=== PATIENT | female | born 1945 | race Caucasian/White ===

== ENCOUNTER 2019-04-06 10:49 | Emergency (ER) | payer MEDICARE, OTHER ==
[~2019-04-06] VITALS: Ht 165 cm; Wt 54.4 kg
[2019-04-06] MEDS ORDERED: LORazepam INJ 2 MG/ML (ATIVAN) VIAL IVP PRN (11:00)
[2019-04-06] MEDS ORDERED: IBUPROFEN 800 MG (MOTRIN) TAB PO ONE (11:00)
[2019-04-06] MEDS ORDERED: NS IV 1000 ML 1,000 ML IV SCH (11:00)
--- NOTE | 2019-04-06 11:01 | ED General ---
General Stated Complaint: SOA,FEVER Source of Information: Patient Exam Limitations: No Limitations History of Present Illness Date Seen by Provider: Apr 06, 2019 Time Seen by Provider: 10:57 Initial Comments To ER per EMS from home with reports of shortness of breath coughing and diarrhea for one week. She does not communicate much, keeps her eyes closed, tachypneic, does not answer questions. Allegedly her son was found in her home this morning lived, while trying to convince her to come to the hospital EMS had to help load her son into a body bag. Timing/Duration: 1 Week Severity: Moderate Associated Systoms: Cough, Weakness Allergies and Home Medications Allergies Coded Allergies: Penicillins (Verified Allergy, Unknown, 04/06/19) codeine (Verified Allergy, Unknown, 04/06/19) Home Medications Alprazolam 0.25 Mg Tablet, 1-2 TAB PO BID PRN for ANXIETY Prescribed by: MER THORNTON on 04/06/19 1256 Azithromycin 250 Mg Tablet, 250 MG PO DAILY Prescribed by: MER THORNTON on 04/06/19 1256 Cefdinir 300 Mg Capsule, 300 MG PO BID Prescribed by: MER THORNTON on 04/06/19 1256 Patient Home Medication List Home Medication List Reviewed: Yes Review of Systems Review of Systems Constitutional: see HPI EENTM: see HPI Respiratory: see HPI Cardiovascular: no symptoms reported Gastrointestinal: diarrhea (review) Genitourinary: no symptoms reported Musculoskeletal: no symptoms reported Skin: no symptoms reported Psychiatric/Neurological: No Symptoms Reported Hematologic/Lymphatic: No Symptoms Reported Immunological/Allergic: no symptoms reported Past Bptwsfb-Bnybdv-Zjyvvx Hx Patient Social History Recent Foreign Travel: No Contact w/Someone Who Travel: No Physical Exam Vital Signs Vital Signs - First Documented 04/06/19 04/06/19 11:01 11:13 Temp 38.8 Pulse 124 Resp 24 B/P (MAP) 128/66 (86) Pulse Ox 95 Capillary Refill : Height, Weight, BMI Height: 0'65.00" Weight: 102lbs. oz. 46.149846zm; BMI Method: General Appearance: No Apparent Distress, WD/WN, Thin, Other (keeps eyes closed, when pressured she does answer questions with 1 or two word answers. Keeps eyes closed at all times. Lungs CTA with good air movement. ) Eyes: Bilateral Eye Normal Inspection, Bilateral Eye PERRL, Bilateral Eye EOMI HEENT: PERRL/EOMI Respiratory: Lungs Clear, Normal Breath Sounds, No Accessory Muscle Use, No Respiratory Distress, Other Cardiovascular: Normal Peripheral Pulses Gastrointestinal: Non Tender, Soft Extremity: Normal Capillary Refill, Normal Inspection Neurologic/Psychiatric: Alert, Oriented x3 Skin: Normal Color, Warm/Dry Focused Exam Lactate Level 04/06/19 10:55: Lactic Acid Level 2.46*H 04/06/19 13:30: Lactic Acid Level 1.73 Lactic Acid Level Progress/Results/Core Measures Suspected Sepsis SIRS Temperature: Pulse: Respiratory Rate: Laboratory Tests 04/06/19 10:55: White Blood Count 11.0 Blood Pressure / Mean: 04/06/19 10:55: Lactic Acid Level 2.46*H 04/06/19 13:30: Lactic Acid Level 1.73 Laboratory Tests 04/06/19 10:55: Creatinine 1.05, Platelet Count 175, Total Bilirubin 0.8 Results/Orders Lab Results Laboratory Tests Test 04/06/19 10:55 04/06/19 11:39 04/06/19 12:10 04/06/19 13:30 Range/Units White Blood Count 11.0 4.3-11.0 10^3/uL Red Blood Count 4.75 4.35-5.85 10^6/uL Hemoglobin 13.4 11.5-16.0 G/DL Hematocrit 40 35-52 % Mean Corpuscular Volume 83 80-99 FL Mean Corpuscular Hemoglobin 28 25-34 PG Mean Corpuscular Hemoglobin Concent 34 32-36 G/DL Red Cell Distribution Width 14.1 10.0-14.5 % Platelet Count 175 130-400 10^3/uL Mean Platelet Volume 10.0 7.4-10.4 FL Neutrophils (%) (Auto) 87 H 42-75 % Lymphocytes (%) (Auto) 8 L 12-44 % Monocytes (%) (Auto) 5 0-12 % Eosinophils (%) (Auto) 0 0-10 % Basophils (%) (Auto) 0 0-10 % Neutrophils # (Auto) 9.5 H 1.8-7.8 X 10^3 Lymphocytes # (Auto) 0.9 L 1.0-4.0 X 10^3 Monocytes # (Auto) 0.5 0.0-1.0 X 10^3 Eosinophils # (Auto) 0.0 0.0-0.3 10^3/uL Basophils # (Auto) 0.0 0.0-0.1 10^3/uL Neutrophils % (Manual) 76 % Lymphocytes % (Manual) 9 % Monocytes % (Manual) 4 % Band Neutrophils 11 % Poikilocytosis SLIGHT Sodium Level 132 L 135-145 MMOL/L Potassium Level 3.2 L 3.6-5.0 MMOL/L Chloride Level 96 L 98-107 MMOL/L Carbon Dioxide Level 20 L 21-32 MMOL/L Anion Gap 16 H 5-14 MMOL/L Blood Urea Nitrogen 15 7-18 MG/DL Creatinine 1.05 0.60-1.30 MG/DL Estimat Glomerular Filtration Rate 52 BUN/Creatinine Ratio 14 Glucose Level 123 H 70-105 MG/DL Lactic Acid Level 2.46 *H 1.73 0.50-2.00 MMOL/L Calcium Level 9.5 8.5-10.1 MG/DL Corrected Calcium 9.4 8.5-10.1 MG/DL Total Bilirubin 0.8 0.1-1.0 MG/DL Aspartate Amino Transf (AST/SGOT) 51 H 5-34 U/L Alanine Aminotransferase (ALT/SGPT) 30 0-55 U/L Alkaline Phosphatase 76 40-136 U/L Total Protein 7.5 6.4-8.2 GM/DL Albumin 4.1 3.2-4.5 GM/DL Blood Gas Puncture Site R RAD R BRACH Blood Gas Patient Temperature 38.8 38.8 Arterial Blood pH 7.30 *L 7.29 *L 7.37-7.43 Arterial Blood Partial Pressure CO2 40 42 35-45 MMHG Arterial Blood Partial Pressure O2 33 *L 33 *L 79-93 MMHG Arterial Blood HCO3 18 L 19 L 23-27 MMOL/L Arterial Blood Total CO2 19.6 L 20.3 L 21.0-31.0 MMOL/L Arterial Blood Oxygen Saturation 32 L 30 L 94-100 % Arterial Blood Base Excess -6.4 L -5.9 L -2.5-2.5 MMOL/L Jonathan Test YES-POS YES-POS Blood Gas Ventilator Setting NO NO Blood Gas Inspired Oxygen 1.5 1.5 Micro Results Microbiology 04/06/19 Influenza Types A,B Antigen (JOHNY) - Final, Complete 04/06/19 Blood Culture - Preliminary, Resulted No growth 04/06/19 Blood Culture - Preliminary, Resulted No growth My Orders Orders - MER THORNTON APRN Cbc With Automated Diff (04/06/19 10:54) Comprehensive Metabolic Panel (04/06/19 10:54) Ed Iv/Invasive Line Start (04/06/19 10:54) Lorazepam Injection (Ativan Injection) (04/06/19 11:00) Ns Iv 1000 Ml (Sodium Chloride 0.9%) (04/06/19 11:00) Influenza A And B Antigens (04/06/19 10:54) Chest Pa/Lat (2 View) (04/06/19 10:54) Blood Culture (04/06/19 10:56) Lactic Acid Analyzer (04/06/19 10:56) Ibuprofen Tablet (Motrin Tablet) (04/06/19 11:00) Manual Differential (04/06/19 10:55) Arterial Blood Gas (04/06/19 11:40) Potassium Chloride (Tablet) (K Dur Table (04/06/19 11:45) Arterial Blood Gas (04/06/19 12:09) Azithromycin Tablet (Zithromax Tablet) (04/06/19 12:15) Ceftriaxone For Iv Use (Rocephin For I (04/06/19 12:15) Medications Given in ED Vital Signs/I&O 04/07/19 00:00 Intake Total 1010 ml Balance 1010 ml Capillary Refill : Departure Communication (Admissions) She scores one point on curb 65 criteria and is appropriate for outpatient therapy. Impression Primary Impression: Pneumonia Qualified Codes: J18.9 - Pneumonia, unspecified organism Additional Impression: Anxiety Disposition: 01 HOME, SELF-CARE Condition: Stable Departure-Patient Inst. Decision time for Depature: 12:54 Referrals: PANKAJ FERNÁNDEZ MD (PCP) Primary Care Physician Patient Instructions: Pneumonia, Adult (DC) Add. Discharge Instructions: 1. Antibiotics as directed starting tomorrow 2. anxiety medication as needed starting this evening. Follow-up with Dr. Fernández this week for recheck within 48 hours. Return to ER for any worsening. Scripts Alprazolam (Alprazolam) 0.25 Mg Tablet 1-2 TAB PO BID PRN for ANXIETY for 7 Days, #10 TAB Prov: MER THORNTON APRN 04/06/19 Azithromycin (Azithromycin) 250 Mg Tablet 250 MG PO DAILY, #4 TAB 0 Refills Prov: MER THORNTON APRN 04/06/19 Cefdinir (Cefdinir) 300 Mg Capsule 300 MG PO BID, #14 CAP 0 Refills Prov: MER THORNTON APRN 04/06/19 Copy Copies To 1: PANKAJ FERNÁNDEZ MD, PETER J APRN Apr 06, 2019 11:01
[2019-04-06 11:11] LABS: BASOPHILS % (AUTO) 0 % (0-10); EOSINOPHILS % (AUTO) 0 % (0-10); HEMATOCRIT 40 % (35-52); HEMOGLOBIN 13.4 G/DL (11.5-16.0); LYMPHOCYTES # (AUTO) 0.9 X 10^3 (1.0-4.0); LYMPHOCYTES % (AUTO) 8 % (12-44); MEAN CORPUSCULAR HEMOGLOBIN 28 PG (25-34); MEAN CORPUSCULAR HGB CONC 34 G/DL (32-36); MEAN CORPUSCULAR VOLUME 83 FL (80-99); MONOCYTES # (AUTO) 0.5 X 10^3 (0.0-1.0); MONOCYTES % (AUTO) 5 % (0-12); NEUTROPHILS # (AUTO) 9.5 X 10^3 (1.8-7.8); NEUTROPHILS % (AUTO) 87 % (42-75); PLATELET COUNT 175 10^3/uL (130-400); RED CELL DISTRIBUTION WIDTH 14.1 % (10.0-14.5)
[2019-04-06 11:30] LABS: ALBUMIN 4.1 GM/DL (3.2-4.5); BILIRUBIN,TOTAL 0.8 MG/DL (0.1-1.0); CALCIUM 9.5 MG/DL (8.5-10.1); CREATININE SERUM 1.05 MG/DL (0.60-1.30); POTASSIUM 3.2 MMOL/L (3.6-5.0); TOTAL PROTEIN 7.5 GM/DL (6.4-8.2)
[2019-04-06 11:31] LABS: BAND NEUTROPHILS 11 %; LYMPHOCYTES % (MANUAL) 9 %; MONOCYTES % (MANUAL) 4 %; NEUTROPHILS % (MANUAL) 76 %
[2019-04-06 11:32] LABS: POIKILOCYTOSIS SLIGHT
[2019-04-06] MEDS ORDERED: KCL 20 MEQ TAB (K-DUR) PO ONE (11:45)
[2019-04-06 11:48] LABS: ABG BASE EXCESS -6.4 MMOL/L (-2.5-2.5); ABG OXYGEN SATURATION 32 % (94-100); ABG PCO2 40 MMHG (35-45); ABG TCO2 19.6 MMOL/L (21.0-31.0)
--- NOTE | 2019-04-06 12:01 | Diagnostic Imaging Report ---
INDICATION: Cough and dyspnea. FINDINGS: PA and lateral views of the chest are obtained. There is no previous study available at this time for comparison. Heart size and pulmonary vascularity are within normal limits. There is focal increased density in the right perihilar region as well as in the medial left lung base. There does appear to be air trapping in both lungs with an upper lobe predominance. No significant pleural fluid is seen. There is pectus excavatum. IMPRESSION: Right perihilar and left basilar airspace disease may represent areas of pneumonia. Follow-up study would be useful to document resolution and to exclude other underlying pathology. Dictated by: Dictated on workstation # [id number]
[2019-04-06 12:02] LABS: ABG PO2 33 MMHG (79-93); ALLENS TEST YES-POS; INSPIRED O2 1.5; PATIENT TEMP 38.8; VENTILATOR NO
[2019-04-06 12:15] LABS: ABG BASE EXCESS -5.9 MMOL/L (-2.5-2.5); ABG OXYGEN SATURATION 30 % (94-100); ABG PCO2 42 MMHG (35-45); ABG TCO2 20.3 MMOL/L (21.0-31.0)
[2019-04-06] MEDS ORDERED: AZITHROMYCIN 250 MG TAB (ZITHROMAX) PO SCH (12:15)
[2019-04-06] MEDS ORDERED: cefTRIAXone FOR IV USE 1,000 MG in WATER (STERILE) FOR INJECTION 10 ML IV ONE (12:15)
[2019-04-06 12:27] LABS: ABG PH 7.29 (7.37-7.43); ABG PO2 33 MMHG (79-93); ALLENS TEST YES-POS; INSPIRED O2 1.5; PATIENT TEMP 38.8; VENTILATOR NO
[2019-04-06] MEDS ORDERED: AZIT250T12 PO (12:56)
[2019-04-06] MEDS ORDERED: CEFD300C3 PO (12:56)
[2019-04-06] MEDS ORDERED: ALPR0.254 PO (12:56)
[2019-04-06 13:47] VITALS: BP 100/57
== END 2019-04-06 13:47 | disposition home or self-care (01) ==
LOC: EDUNIT# 10:49 → ER 10:50
DX: J18.9 Pneumonia, unspecified organism (principal); F41.9 Anxiety disorder, unspecified; Z88.0 Allergy status to penicillin; Z88.5 Allergy status to narcotic agent
CPT/HCPCS: 36415; 71046; 80053; 82805; 83605; 85007; 85027; 87040; 87804; 96361; 96374; 96375

== ENCOUNTER 2021-03-20 12:29 | Observation (INO) | payer MEDICARE, OTHER ==
[~2021-03-20] VITALS: Ht 165.1 cm; Wt 43.1 kg
[2021-03-20] MEDS: NS IV 1000 ML 1,000 ML IV SCH ×3 (10:00→18:20)
[~2021-03-20 12:29] MED LIST: ALPR.25T PO; AZIT250T12 PO; CEFD300C3 PO
[2021-03-20] MEDS ORDERED: LORazepam INJ 2 MG/ML (ATIVAN) VIAL IVP STA (12:44)
[2021-03-20] MEDS ORDERED: ONDANSETRON 4 MG/2 ML (SDV) Z0FRAN IVP ONE (12:45)
--- NOTE | 2021-03-20 12:50 | ED General ---
General Chief Complaint: Abdominal/GI Problems Stated Complaint: N/V Source of Information: Patient, EMS Exam Limitations: No Limitations History of Present Illness Date Seen by Provider: Mar 20, 2021 Time Seen by Provider: 12:37 Initial Comments Patient is a 75-year-old female who presents to the emergency room by EMS chief complaint of generalized weakness, nausea and vomiting. Patient has a history of persistent tremors and takes Xanax as needed. She is not very clear on how much or how often she takes Xanax. She cannot recall the last time she took it. She has had nausea and vomiting all morning, her daughter called the ambulance when she found her this morning. Patient states her symptoms started last night. She denies chest pain or shortness of breath. No URI symptoms. No pain. She does endorse dysuria. She states it happens off and on. No diarrhea. No recent falls, traumas or injuries. She had Covid in September. She also takes a thyroid medication, she cannot recall if she is taken that recently. All other review of systems reviewed and negative except as stated Timing/Duration: 1 Day Severity: Moderate Associated Systoms: Malaise, Nausea/Vomiting Allergies and Home Medications Allergies Coded Allergies: Penicillins (Verified Allergy, Unknown, 04/06/19) codeine (Verified Allergy, Unknown, 04/06/19) Patient Home Medication List Home Medication List Reviewed: Yes ALPRAZolam (Xanax Tablet) 0.25 Mg Tablet, 1-2 TAB PO BID PRN for ANXIETY Prescribed by: MER THORNTON on 04/06/19 1256 Azithromycin (Azithromycin) 250 Mg Tablet, 250 MG PO DAILY Prescribed by: MER THORNTON on 04/06/19 1256 Cefdinir (Cefdinir) 300 Mg Capsule, 300 MG PO BID Prescribed by: MER THORNTON on 04/06/19 1256 Review of Systems Review of Systems Constitutional: see HPI EENTM: no symptoms reported Respiratory: no symptoms reported Cardiovascular: no symptoms reported Gastrointestinal: nausea, vomiting Genitourinary: dysuria, frequency Musculoskeletal: no symptoms reported Skin: no symptoms reported Psychiatric/Neurological: Tremors (chronic) All Other Systems Reviewed Negative Unless Noted: Yes Past Uhbtmyi-Nolgyw-Ipoiny Hx Past Medical History Surgeries: Yes Appendectomy, Gallbladder Respiratory: No Cardiac: No Neurological: No Genitourinary: No Gastrointestinal: No Musculoskeletal: No Endocrine: No HEENT: No Cancer: No Psychosocial: No Anxiety, Depression Integumentary: No Blood Disorders: No Physical Exam Vital Signs Vital Signs - First Documented 03/20/21 12:29 Temp 36.9 Pulse 90 Resp 18 B/P (MAP) 97/62 (74) Pulse Ox 98 O2 Delivery Room Air Capillary Refill : Height, Weight, BMI Height: 0'65.00" Weight: 102lbs. oz. 46.242049gj; 19.00 BMI Method: General Appearance: Anxious, Mild Distress Eyes: Bilateral Eye Normal Inspection, Bilateral Eye PERRL, Bilateral Eye EOMI HEENT: Moist Mucous Membranes Neck: Normal Inspection Respiratory: Lungs Clear, Normal Breath Sounds, No Accessory Muscle Use, No Respiratory Distress Cardiovascular: Regular Rate, Rhythm Gastrointestinal: Normal Bowel Sounds, Non Tender, Soft Extremity: Normal Capillary Refill, Normal Inspection, Normal Range of Motion, Non Tender, No Calf Tenderness Neurologic/Psychiatric: Alert, No Motor/Sensory Deficits, Disoriented (confused as to year, month, name of her doctor), Other (anxious, tremoring) Skin: Normal Color, Warm/Dry Progress/Results/Core Measures Suspected Sepsis SIRS Temperature: Pulse: Respiratory Rate: Laboratory Tests 03/20/21 12:44: White Blood Count 8.4 Blood Pressure / Mean: Laboratory Tests 03/20/21 12:44: Creatinine 0.79, Platelet Count 259, Total Bilirubin 1.2H Results/Orders Lab Results Laboratory Tests Test 03/20/21 12:44 03/20/21 13:58 Range/Units White Blood Count 8.4 4.3-11.0 10^3/uL Red Blood Count 4.49 3.80-5.11 10^6/uL Hemoglobin 13.0 11.5-16.0 g/dL Hematocrit 37 35-52 % Mean Corpuscular Volume 83 80-99 fL Mean Corpuscular Hemoglobin 29 25-34 pg Mean Corpuscular Hemoglobin Concent 35 32-36 g/dL Red Cell Distribution Width 12.1 10.0-14.5 % Platelet Count 259 130-400 10^3/uL Mean Platelet Volume 9.9 9.0-12.2 fL Immature Granulocyte % (Auto) 0 % Neutrophils (%) (Auto) 73 42-75 % Lymphocytes (%) (Auto) 20 12-44 % Monocytes (%) (Auto) 7 0-12 % Eosinophils (%) (Auto) 0 0-10 % Basophils (%) (Auto) 0 0-10 % Neutrophils # (Auto) 6.1 1.8-7.8 10^3/uL Lymphocytes # (Auto) 1.7 1.0-4.0 10^3/uL Monocytes # (Auto) 0.6 0.0-1.0 10^3/uL Eosinophils # (Auto) 0.0 0.0-0.3 10^3/uL Basophils # (Auto) 0.0 0.0-0.1 10^3/uL Immature Granulocyte # (Auto) 0.0 0.0-0.1 10^3/uL Sodium Level 121 *L 135-145 MMOL/L Potassium Level 3.5 L 3.6-5.0 MMOL/L Chloride Level 87 L 98-107 MMOL/L Carbon Dioxide Level 20 L 21-32 MMOL/L Anion Gap 14 5-14 MMOL/L Blood Urea Nitrogen 5 L 7-18 MG/DL Creatinine 0.79 0.60-1.30 MG/DL Estimat Glomerular Filtration Rate 79 BUN/Creatinine Ratio 6 Glucose Level 104 70-105 MG/DL Calcium Level 9.0 8.5-10.1 MG/DL Corrected Calcium 8.9 8.5-10.1 MG/DL Total Bilirubin 1.2 H 0.1-1.0 MG/DL Aspartate Amino Transf (AST/SGOT) 38 H 5-34 U/L Alanine Aminotransferase (ALT/SGPT) 20 0-55 U/L Alkaline Phosphatase 76 40-136 U/L Total Protein 6.6 6.4-8.2 GM/DL Albumin 4.1 3.2-4.5 GM/DL Urine Color YELLOW Urine Clarity CLEAR Urine pH 7.5 5-9 Urine Specific [place] 1.010 L 1.016-1.022 Urine Protein NEGATIVE NEGATIVE Urine Glucose (UA) NEGATIVE NEGATIVE Urine Ketones NEGATIVE NEGATIVE Urine Nitrite POSITIVE H NEGATIVE Urine Bilirubin NEGATIVE NEGATIVE Urine Urobilinogen 0.2 < = 1.0 MG/DL Urine Leukocyte Esterase 1+ H NEGATIVE Urine RBC (Auto) 1+ H NEGATIVE Urine RBC RARE /HPF Urine WBC 2-5 /HPF Urine Crystals NONE /LPF Urine Bacteria MODERATE H /HPF Urine Casts NONE /LPF Urine Mucus NEGATIVE /LPF Urine Culture Indicated YES My Orders Orders - MARIBELL KUMAR MD Ed Iv/Invasive Line Start (03/20/21 12:44) Cbc With Automated Diff (03/20/21 12:44) Comprehensive Metabolic Panel (03/20/21 12:44) Urinalysis (03/20/21 12:44) Ns Iv 1000 Ml (Sodium Chloride 0.9%) (03/20/21 12:45) Lorazepam Injection (Ativan Injection) (03/20/21 12:44) Ondansetron Injection (Zofran Injectio (03/20/21 12:45) Urine Culture (03/20/21 13:58) Blood Culture (03/20/21 14:35) Lactic Acid Analyzer (03/20/21 14:35) Ceftriaxone 1 Gm Pre-Mix (Rocephin 1 Gm (03/20/21 14:45) Medications Given in ED Current Medications Medications Dose Ordered Sig/Milan Route Start Time Stop Time Status Last Admin Dose Admin Ondansetron HCl 4 mg ONCE ONCE IVP 03/20/21 12:45 03/20/21 12:46 DC 03/20/21 12:54 4 MG Vital Signs/I&O 03/20/21 03/20/21 12:29 13:16 Temp 36.9 Pulse 90 77 Resp 18 18 B/P (MAP) 97/62 (74) 153/89 Pulse Ox 98 94 O2 Delivery Room Air Room Air Capillary Refill : Progress Note #1: Time: 13:30 Progress Note Anticipate admission, serum sodium of 121. Progress Note #2: Time: 14:39 Progress Note Discussed with daughter Belgica, the patient normally lives independently and is able to converse and asked "normal". Belgica did state that her mother told her that she has had severe diarrhea over the last several days. That she just started vomiting today. She believes that her doctor lives in [place] and it may b e a "Dr. Rosales" daughter is not able to provide much more of the history. Daughter did mention that she was quite concerned as she has a mentally disabled brother who lives at home with the mother who is his primary care administrative tech. Departure Impression Primary Impression: Hyponatremia Additional Impressions: Nausea and vomiting Qualified Codes: R11.2 - Nausea with vomiting, unspecified UTI (urinary tract infection) Qualified Codes: N30.00 - Acute cystitis without hematuria Disposition: 09 ADMITTED INPATIENT Condition: Stable Admissions Decision to Admit Reason: Admit from ER (General) Decision to Admit/Date: Mar 20, 2021 Time/Decision to Admit Time: 14:40 Departure-Patient Inst. Referrals: PANKAJ FERNÁNDEZ MD (PCP/Family) Primary Care Physician MARIBELL KUMAR MD Mar 20, 2021 12:50
[2021-03-20 12:53] LABS: BASOPHILS % (AUTO) 0 % (0-10); EOSINOPHILS % (AUTO) 0 % (0-10); HEMATOCRIT 37 % (35-52); LYMPHOCYTES # (AUTO) 1.7 10^3/uL (1.0-4.0); LYMPHOCYTES % (AUTO) 20 % (12-44); MEAN CORPUSCULAR HEMOGLOBIN 29 pg (25-34); MEAN CORPUSCULAR HGB CONC 35 g/dL (32-36); MEAN CORPUSCULAR VOLUME 83 fL (80-99); MEAN PLATELET VOLUME 9.9 fL (9.0-12.2); MONOCYTES # (AUTO) 0.6 10^3/uL (0.0-1.0); MONOCYTES % (AUTO) 7 % (0-12); NEUTROPHILS # (AUTO) 6.1 10^3/uL (1.8-7.8); NEUTROPHILS % (AUTO) 73 % (42-75); PLATELET COUNT 259 10^3/uL (130-400); WHITE BLOOD COUNT 8.4 10^3/uL (4.3-11.0)
[2021-03-20 13:00] LABS: ALBUMIN 4.1 GM/DL (3.2-4.5)
[2021-03-20 13:01] LABS: POTASSIUM 3.5 MMOL/L (3.6-5.0)
[2021-03-20 13:03] LABS: TOTAL PROTEIN 6.6 GM/DL (6.4-8.2)
[2021-03-20 13:05] LABS: BILIRUBIN,TOTAL 1.2 MG/DL (0.1-1.0)
[2021-03-20 13:07] LABS: CREATININE SERUM 0.79 MG/DL (0.60-1.30)
[2021-03-20 14:04] LABS: BILIRUBIN,URINE NEGATIVE (NEGATIVE); CLARITY,URINE CLEAR; COLOR,URINE YELLOW; GLUCOSE, URINE (UA) NEGATIVE (NEGATIVE); KETONES,URINE NEGATIVE (NEGATIVE); LEUKOCYTE ESTERASE ,URINE 1+ (NEGATIVE); NITRITE,URINE POSITIVE (NEGATIVE); PH,URINE 7.5 (5-9); PROTEIN,URINE NEGATIVE (NEGATIVE)
[2021-03-20 14:11] LABS: BACTERIA,URINE MODERATE /HPF; RBC,URINE RARE /HPF
[2021-03-20] MEDS ORDERED: cefTRIAXone 1 GM PRE-MIX 50 ML IV ONE (14:45)
[2021-03-20] MEDS ORDERED: PANTOPRAZOLE 40 MG (PROTONIX) VIAL IV ONE (14:45)
[2021-03-20 15:30] LABS: FREE T4 (FREE THYROXINE) 1.23 NG/DL (0.70-1.48)
--- NOTE | 2021-03-20 15:54 | History & Physical-Hospitalist ---
NELLY GODFREY 03/20/21 1554: History of Present Illness HPI/Chief Complaint Angelika is a 75yo F who presented to the ER on 03/20/21 with generalized weakness, nausea, and vomiting. She says that she started having vomiting, nausea, and diarrhea yesterday that continued into today. Her daughter called an ambulance for the patient when the daughter came to the patient's home this morning. Patient has a history of persistent tremors and takes Xanax as needed. She states that she takes her Xanax once a day for anxiety. She also says she takes a thyroid medication, she cannot recall if she has taken that recently. Is allergic to penicillins and codeine. Past surgical history includes appendectomy and cholecystectomy. Denies any history of smoking, drinking, or use of illicit drugs. 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 She has been around her daughter recently who has COVID. Had a PCR test for COVID done and are waiting on results. Her Na was low at 121. Her UA was positive for nitrites and had 1+ RBC indicating a UTI. Patient does not meet SIRS criteria and there is not a concern for sepsis. A urine culture was taken. Patient was given a shot of Ceftriaxone in the ER. Patient was stable when she left ER and was admitted for UTI and hyponatremia. Date Seen 03/20/21 Attending Physician Camille rBown Ronald D MD Referring Physician Date of Admission Mar 20, 2021 at 15:10 Home Medications & Allergies Home Medications Reviewed patient Home Medication Reconciliation performed by pharmacy medication reconciliations security systems technician and/or nursing. Patients Allergies have been reviewed. Allergies Allergies Coded Allergies Penicillins (Verified Allergy, Unknown, 03/20/21) codeine (Verified Allergy, Unknown, 03/20/21) Past Rflmrac-Yimiuo-Rzeuma Hx Patient Social History Marrital Status: single Tobacco Use?: No Smoking Status: Never a Smoker Substance use?: No Alcohol Use?: No Pt feels they are or have been: No Immunizations Up To Date First/Initial COVID19 Vaccinat: UNSURE Second COVID19 Vaccination Herbie: UNSURE Current Status Advance Directives: No Primary Language: Arabic Preferred Spoken Language: Arabic Implanted or Applied Medical D: None Past Medical History Surgeries: Appendectomy, Gallbladder Anxiety, Depression Blood Disorders: No Review of Systems Constitutional: weakness EENTM: no symptoms reported Respiratory: cough (Patient says she has had a cough for about a week) Cardiovascular: no symptoms reported Gastrointestinal: abdominal pain (Suprapubic pain) Genitourinary: dysuria (Feels a burning sensation whenever urinating), frequency (Increased frequency), incontinence : No Musculoskeletal: no symptoms reported Skin: no symptoms reported Psychiatric/Neurological: Anxiety Physical Exam Physical Exam Vital Signs Vital Signs - First Documented 03/20/21 12:29 Temp 36.9 Pulse 90 Resp 18 B/P (MAP) 97/62 (74) Pulse Ox 98 O2 Delivery Room Air Capillary Refill : Less Than 3 Seconds Height, Weight, BMI Height: 0'65.00" Weight: 102lbs. oz. 46.949708rs; 15.00 BMI Method: General Appearance: Mild Distress (Patient appear weak and struggled to sit up in bed) Eyes: Bilateral Eye Normal Inspection HEENT: PERRL/EOMI Neck: Full Range of Motion Respiratory: Chest Non Tender, Lungs Clear, Normal Breath Sounds Cardiovascular: Regular Rate, Rhythm, No Edema, No Murmur Gastrointestinal: Normal Bowel Sounds, Tenderness (Suprapubic tenderness upon deep palpation) Back: Normal Inspection, No CVA Tenderness Extremity: Normal Capillary Refill Neurologic/Psychiatric: Alert, Disoriented (Oriented to person and place) Skin: Normal Color Lymphatic: No Adenopathy Results Results/Procedures Labs Laboratory Tests 03/20/21 12:44 03/21/21 06:51 Patient resulted labs reviewed. Assessment/Plan Assessment and Plan 1)Hyponatremia Patient started on IV sodium chloride Will try to raise Na levels 6-8 units over the next 24 hours Will continue to monitor labs Should check serum osm and urine Na 2)Nausea and vomiting Ondansetron started to decrease symptoms 3)UTI Patient will be started on oral Cefdinir to treat UTI Will look at results of urine culture Diagnosis/Problems Diagnosis/Problems (1) Hyponatremia Status: Acute (2) Nausea and vomiting Status: Acute Qualifiers: Vomiting type: unspecified Qualified Codes: R11.2 - Nausea with vomiting, unspecified (3) UTI (urinary tract infection) Status: Acute Qualifiers: Urinary tract infection type: acute cystitis Hematuria presence: without hematuria Qualified Codes: N30.00 - Acute cystitis without hematuria CAMILLE BROWN DO 03/21/21 0526: History of Present Illness HPI/Chief Complaint CC: Weakness HPI: 75 [facility] old [facility] pt of Renetta Rosales. Presented to the ER with severe weakn ess and found to have severely low sodium levels. Pt has chronic diarrhea and taking Lomotil for the past 6 weeks. 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 Source: patient Exam Limitations: no limitations Time Seen by a Provider: 10:00 Past Pwxofxr-Kuhiyw-Yjznsx Hx Patient Social History Marrital Status: single Employed/Student: retired Smoking Status: Never a Smoker Past Medical History Hypothyroidsim Review of Systems Constitutional: see HPI, weakness EENTM: no symptoms reported Respiratory: no symptoms reported Cardiovascular: no symptoms reported Gastrointestinal: diarrhea Genitourinary: dysuria (Feels a burning sensation whenever urinating), frequency (Increased frequency) Musculoskeletal: no symptoms reported Skin: no symptoms reported Psychiatric/Neurological: Anxiety All Other Systems Reviewed Negative Unless Noted: Yes Physical Exam Physical Exam General Appearance: No Apparent Distress, Anxious, Chronically ill, Thin Eyes: Right Eye Normal Inspection, Right Eye PERRL HEENT: PERRL/EOMI, Normal ENT Inspection, Pharynx Normal, Moist Mucous Membranes Neck: Full Range of Motion, Normal Inspection, Non Tender Respiratory: Chest Non Tender, Lungs Clear, Normal Breath Sounds, No Accessory Muscle Use, No Respiratory Distress Cardiovascular: Regular Rate, Rhythm, No Edema, No Gallop, No JVD, No Murmur, Normal Peripheral Pulses Gastrointestinal: Normal Bowel Sounds, No Organomegaly, No Pulsatile Mass, Non Tender, Soft Back: Normal Inspection, No CVA Tenderness, No Vertebral Tenderness Extremity: Normal Capillary Refill, Normal Inspection, Normal Range of Motion, Non Tender, No Calf Tenderness, No Pedal Edema Neurologic/Psychiatric: Alert, Oriented x3, No Motor/Sensory Deficits, Normal Mood/Affect Skin: Normal Color, Warm/Dry Lymphatic: No Adenopathy Assessment/Plan Admission Diagnosis Assessment: Weakness Hyponatremia Acute on chronic diarrhea UTI Hypothyroidism Plan: IV fluids Antibiotic Admission Status: Observation Supervisory-Addendum Brief Verification & Attestation Participated in pt care: history, MDM, physical Personally performed: exam, history, MDM, supervision of care Care discussed with: Medical Student Procedures: n/a Results interpretation: Verified all documentation Verification and Attestation of Medical Student E/M Service A medical student performed and documented this service in my presence. I reviewed and verified all information documented by the medical student and made modifications to such information, when appropriate. I personally performed the physical exam and medical decision making. Camille Brown, Mar 22, 2021,05:06 NELLY GODFREY Mar 20, 2021 15:54 CAMILLE BROWN DO Mar 21, 2021 05:26
[2021-03-20] MEDS ORDERED: MELATONIN 3 MG TABLET PO PRN (17:00)
[2021-03-20] MEDS ORDERED: ENOXAPARIN 40 MG/0.4 ML (LOVENOX) SYR SC SCH (17:00)
[2021-03-20] MEDS ORDERED: ALPRAZolam 0.25 MG (XANAX) TAB PO PRN (17:00)
[2021-03-20] MEDS ORDERED: diphenhydrAMINE 25 MG TAB (BENADRYL) PO PRN (17:00)
[2021-03-20] MEDS ORDERED: polyethylene glycoL POWDER 17 GM (MIRALAX) PACK PO PRN (17:00)
[2021-03-20] MEDS ORDERED: ANTACID SUSP 30 ML UDC (MYLANTA) PO PRN (17:00)
[2021-03-20] MEDS ORDERED: BISACODYL 10 MG SUPP (DULCOLAX) PR PRN (17:00)
[2021-03-20] MEDS ORDERED: ACETAMINOPHEN 325 MG TABLET PO PRN (17:00)
[2021-03-20] MEDS ORDERED: diphenhydrAMINE 50 MG/ML INJ (BENADRYL) IVP PRN (17:00)
[2021-03-20] MEDS ORDERED: ONDANSETRON 4 MG (ZOFRAN) ORAL DISSOLVE TAB PO PRN (17:00)
[2021-03-20] MEDS ORDERED: LACTULOSE SYRUP 10GM/15ML (ENULOSE) 30ML UDC PO PRN (17:00)
[2021-03-20] MEDS ORDERED: ONDANSETRON 4 MG/2 ML (SDV) Z0FRAN IV PRN (17:00)
[2021-03-20] MEDS ORDERED: CALCIUM CARBONATE 500 MG (TUMS) TAB.CHEW PO PRN (17:00)
[2021-03-20] MEDS ORDERED: MILK OF MAGNESIA 400 MG/5 ML 30 ML UDC PO PRN (17:00)
[2021-03-20] MEDS ORDERED: ENOXAPARIN 30 MG/0.3 ML (LOVENOX) SYR SC SCH (18:00)
[2021-03-20 18:08] VITALS: BP 111/67
[2021-03-20 19:08] VITALS: BP 111/67
[2021-03-20] MEDS ORDERED: RT-ALBUTEROL/IPRATROPIUM 3 ML (DUONEB) VIAL INH PRN (19:30)
[2021-03-20 20:56] VITALS: BP 111/67
[2021-03-20] MEDS: DOCUSATE SODIUM 100 MG (COLACE) CAP PO SCH (22:13)
[2021-03-20] MEDS: SENNOSIDES 8.6 MG (SENOKOT) TAB PO SCH (22:13)
[2021-03-20] MEDS: SODIUM CHLORIDE 1 GM TABLET PO SCH (22:28)
[2021-03-21 01:01] VITALS: BP 119/62
[2021-03-21 04:28] VITALS: BP 111/56
[2021-03-21] MEDS: NS IV 1000 ML 1,000 ML IV SCH (04:28)
[2021-03-21 07:07] LABS: BASOPHILS % (AUTO) 0 % (0-10); EOSINOPHILS # (AUTO) 0.1 10^3/uL (0.0-0.3); EOSINOPHILS % (AUTO) 1 % (0-10); HEMATOCRIT 35 % (35-52); HEMOGLOBIN 11.5 g/dL (11.5-16.0); LYMPHOCYTES # (AUTO) 1.2 10^3/uL (1.0-4.0); LYMPHOCYTES % (AUTO) 32 % (12-44); MEAN CORPUSCULAR HEMOGLOBIN 29 pg (25-34); MEAN CORPUSCULAR HGB CONC 33 g/dL (32-36); MEAN CORPUSCULAR VOLUME 87 fL (80-99); MEAN PLATELET VOLUME 10.3 fL (9.0-12.2); MONOCYTES # (AUTO) 0.5 10^3/uL (0.0-1.0); MONOCYTES % (AUTO) 12 % (0-12); NEUTROPHILS # (AUTO) 2.1 10^3/uL (1.8-7.8); NEUTROPHILS % (AUTO) 54 % (42-75); PLATELET COUNT 167 10^3/uL (130-400); WHITE BLOOD COUNT 3.9 10^3/uL (4.3-11.0)
[2021-03-21 07:25] LABS: ALBUMIN 3.3 GM/DL (3.2-4.5); BILIRUBIN,TOTAL 0.6 MG/DL (0.1-1.0); CALCIUM 8.3 MG/DL (8.5-10.1); CREATININE SERUM 0.75 MG/DL (0.60-1.30); POTASSIUM 3.5 MMOL/L (3.6-5.0); TOTAL PROTEIN 5.6 GM/DL (6.4-8.2)
[2021-03-21 08:18] VITALS: BP 116/64
[2021-03-21] MEDS ORDERED: cefTRIAXone 1 GM PRE-MIX 50 ML IV SCH (09:00)
[2021-03-21] MEDS: DOCUSATE SODIUM 100 MG (COLACE) CAP PO SCH (09:45)
[2021-03-21] MEDS: SENNOSIDES 8.6 MG (SENOKOT) TAB PO SCH (09:45)
[2021-03-21] MEDS ORDERED: KCL 20 MEQ TAB (K-DUR) PO NR (10:00)
[2021-03-21] MEDS: SODIUM CHLORIDE 1 GM TABLET PO SCH (10:24)
[2021-03-21] MEDS ORDERED: SERT-413 PO (10:46)
[2021-03-21] MEDS ORDERED: ACET-2267 PO (10:46)
[2021-03-21] MEDS ORDERED: DIPH1TAB PO (10:46)
[2021-03-21] MEDS ORDERED: ALPR0.254 PO (10:46)
[2021-03-21] MEDS ORDERED: LEVO25TA5 PO (10:50)
[2021-03-21] MEDS ORDERED: CEFD300C3 PO (10:55)
[2021-03-21] MEDS ORDERED: NF-NACL1GT PO (10:55)
--- NOTE | 2021-03-21 10:56 | Discharge Summary ---
Discharge Summary Hospital Course Was the Problem List Reviewed?: Yes Problems/Dx: (1) Hyponatremia Status: Acute (2) Nausea and vomiting Status: Acute Qualifiers: Qualified Codes: R11.2 - Nausea with vomiting, unspecified (3) UTI (urinary tract infection) Status: Acute Qualifiers: Qualified Codes: N30.00 - Acute cystitis without hematuria Hospital Course Date of Admission: Mar 20, 2021 at 15:10 Admission Diagnosis : Family Physician/Provider: Maya Rosales Date of Discharge: 03/21/21 Discharge Diagnosis: Hyponatremia, UTI, acute on chronic diarrhea Hospital Course: Pt had an uneventful hospital course. She was admitted and placed on gentle IV fluids, sodium tablets, and fluid restriction. Her sodium level returned back to normal at 140. PT and OT were consulted. Pt will be discharged in improved condition. Labs and Pending Lab Test: Laboratory Tests 03/20/21 12:44: White Blood Count 8.4, Red Blood Count 4.49, Hemoglobin 13.0, Hematocrit 37, Mean Corpuscular Volume 83, Mean Corpuscular Hemoglobin 29, Mean Corpuscular Hemoglobin Concent 35, Red Cell Distribution Width 12.1, Platelet Count 259, Mean Platelet Volume 9.9, Immature Granulocyte % (Auto) 0, Neutrophils (%) (Auto ) 73, Lymphocytes (%) (Auto) 20, Monocytes (%) (Auto) 7, Eosinophils (%) (Auto) 0, Basophils (%) (Auto) 0, Neutrophils # (Auto) 6.1, Lymphocytes # (Auto) 1.7, Monocytes # (Auto) 0.6, Eosinophils # (Auto) 0.0, Basophils # (Auto) 0.0, Immature Granulocyte # (Auto) 0.0, Sodium Level 121*L, Potassium Level 3.5L, Chloride Level 87L, Carbon Dioxide Level 20L, Anion Gap 14, Blood Urea Nitrogen 5L, Creatinine 0.79, Estimat Glomerular Filtration Rate 79, BUN/Creatinine Ratio 6, Glucose Level 104, Calcium Level 9.0, Corrected Calcium 8.9, Total Bilirubin 1.2H, Aspartate Amino Transf (AST/SGOT) 38H, Alanine Aminotransferase (ALT/SGPT) 20, Alkaline Phosphatase 76, Total Protein 6.6, Albumin 4.1, Thyroid Stimulating Hormone (TSH) 6.72H, Free Thyroxine 1.23 03/20/21 13:58: Urine Color YELLOW, Urine Clarity CLEAR, Urine pH 7.5, Urine Specific [place] 1.010L, Urine Protein NEGATIVE, Urine Glucose (UA) NEGATIVE, Urine Ketones NEGATIVE, Urine Nitrite POSITIVEH, Urine Bilirubin NEGATIVE, Urine Urobilinogen 0.2, Urine Leukocyte Esterase 1+H, Urine RBC (Auto) 1+H, Urine RBC RARE, Urine WBC 2-5, Urine Crystals NONE, Urine Bacteria MODERATEH, Urine Casts NONE, Urine Mucus NEGATIVE, Urine Culture Indicated YES 03/20/21 14:21: Influenza Type A (RT-PCR) Not Detected, Influenza Type B (RT-PCR) Not Detected, SARS-CoV-2 RNA (RT-PCR) Not Detected 03/20/21 14:48: Lactic Acid Level 0.79 03/21/21 06:51: White Blood Count 3.9L, Red Blood Count 3.96, Hemoglobin 11.5, Hematocrit 35, Mean Corpuscular Volume 87, Mean Corpuscular Hemoglobin 29, Mean Corpuscular Hemoglobin Concent 33, Red Cell Distribution Width 12.8, Platelet Count 167, Mean Platelet Volume 10.3, Immature Granulocyte % (Auto) 0, Neutrophils (%) (Auto) 54, Lymphocytes (%) (Auto) 32, Monocytes (%) (Auto) 12, Eosinophils (%) (Auto) 1, Basophils (%) (Auto) 0, Neutrophils # (Auto) 2.1, Lymphocytes # (Auto) 1.2, Monocytes # (Auto) 0.5, Eosinophils # (Auto) 0.1, Basophils # (Auto) 0.0, Immature Granulocyte # (Auto) 0.0, Sodium Level 140, Potassium Level 3.5L, Chloride Level 111#H, Carbon Dioxide Level 20L, Anion Gap 9, Blood Urea Nitrogen 6L, Creatinine 0.75, Estimat Glomerular Filtration Rate 84, BUN/Creatinine Ratio 8, Glucose Level 81, Calcium Level 8.3L, Corrected Calcium 8.9, Total Bilirubin 0.6, Aspartate Amino Transf (AST/SGOT) 38H, Alanine Aminotransferase (ALT/SGPT) 24, Alkaline Phosphatase 57, Total Protein 5.6L, Albumin 3.3 Microbiology 03/20/21 Urine Culture - Preliminary, Resulted Gram Negative [place] Home Meds Active Reported Levothyroxine Sodium 25 Mcg Tablet 25 Mcg PO DAILY Tylenol Extra Strength (Acetaminophen) 500 Mg Tablet 1,000 Mg PO Q8H PRN ALPRAZolam 0.25 Mg Tablet 0.25 Mg PO DAILY PRN Lomotil 2.5-0.025 mg Tablet (Diphenoxylate HCl/Atropine) 1 Each Tablet 1 Ea PO DAILY PRN Sertraline HCl 50 Mg Tablet 50 Mg PO HS Assessment/Pt Instructions PCP in 1 week Discharge Planning: <30 minutes discharge planning Discharge Instructions Discharge Diet: No Restrictions Discharge Physical Examination Vital Signs Vital Signs Date Time Temp Pulse Resp B/P (MAP) Pulse Ox O2 Delivery O2 Flow Rate FiO2 03/21/21 09:13 Room Air 03/21/21 08:18 36.8 63 18 116/64 (81) 97 General Appearance: No Apparent Distress, WD/WN, Chronically ill, Thin Allergies: Coded Allergies: Penicillins (Verified Allergy, Unknown, 03/20/21) codeine (Verified Allergy, Unknown, 03/20/21) Discharge Summary Date of Admission Mar 20, 2021 at 15:10 Date of Discharge Discharge Date: Mar 21, 2021 Discharge Diagnosis (1) Hyponatremia Status: Acute (2) Nausea and vomiting Status: Acute Qualifiers: Qualified Codes: R11.2 - Nausea with vomiting, unspecified (3) UTI (urinary tract infection) Status: Acute Qualifiers: Qualified Codes: N30.00 - Acute cystitis without hematuria JT OLIVA DO Mar 21, 2021 10:56
[2021-03-21] MEDS ORDERED: ALPRAZolam 0.25 MG (XANAX) TAB PO PRN (11:00)
[2021-03-21] MEDS ORDERED: ACETAMINOPHEN 500 MG TAB (TYLENOL) PO PRN (11:00)
--- NOTE | 2021-03-21 11:27 | Occupational Therapy Eval ---
OT Evaluation-General/PLF Medical Diagnosis Admission Date Mar 20, 2021 at 15:10 Medical Diagnosis: UTI, hyponatremia Onset Date: Mar 20, 2021 Therapy Diagnosis Therapy Diagnosis: decreased ADL status Height/Weight Height (Feet): 0 Height (Inches): 65.00 Weight (Pounds): 102 Precautions Precautions/Isolations: Contact Isolation, Droplet Isolation, Fall Prevention Referral Physician: Stephanie Referral Reason: Evaluation/Treatment Medical History Additional Medical History Appendectomy, Gallbladder Anxiety, Depression Current History ED 03/20/21 with generalized weakness, nausea and vomiting. Social History Home: Single Level Current Living Status: Children (son) Entry Into Home: Stairs With Railing Steps Into Home: 4 ADL-Prior Level of Function SCALE: Activities may be completed with or without assistive devices. 7-Cjdfcxnowh-ixxnitd completes the activity by him/herself with no assistance from a helper. 5-Set-up or Clean-up Assistance-helper sets up or cleans up; patient completes activity. [place] assists only prior to or following the activity. 4-Supervision or Touching Assistance-helper provides verbal cues and/or touching/steadying and/or contact guard assistance as patient completes activity. Assistance may be provided throughout the activity or intermittently. 3-Partial/Moderate Assistance-helper does LESS THAN HALF the effort. [place] lifts, holds or supports trunk or limbs, but provides less than half the effort. 2-Substantial/Maximal Assistance-helper does MORE THAN HALF the effort. [place] lifts or holds trunk or limbs and provides more than half the effort. 6-Vexzdpmiq-xjrzex does ALL the effort. Patient does none of the effort to complete the activity. Or, the assistance of 2 or more helpers is required for the patient to complete the activity. If activity was not attempted, code reason: 7-Patient Refused. 9-Not Applicable-not attempted and the patient did not perform the activity before the current illness, exacerbation or injury. 10-Not Attempted due to Environmental Limitations-(lack of equipment, weather restraints, etc.). 88-Not Attempted due to Medical Conditions or Safety Concerns. ADL PLOF Comments Pt reports IND with ADLs and functional mobility. She typically uses a walker but let someone borrow it and they never returned it. Pt has a tub/shower with a SC. Self Care: Independent Functional Cognition: Independent DME/Equipment: Tub/Shower OT Current Status Subjective Pt in bed, eating breakfast, agreeable to OT evaluation. Pt reports 2/10 pain, headache. Mental Status/Objective Patient Orientation: Person, Place, Situation Attachments: IV Current Glasses/Contacts: Yes Hand Dominance: Right Upper Extremity ROM WFL, BUE shoulder flexion to approx 150 degrees Upper Extremity Strength grossly 4/5 BUEs ADL-Treatment Eating (QC): 6 (IND with breakfast) Oral Hygiene (QC): 5 (per clincial judgment.) Other Treatments Pt in bed, transferred supine to sit EOB, then used FWW to perform functional mobility in hallways, CGA with steadying assistance (300'). Pt returned to her room, transferring to recliner. Post tx, pt in recliner, call light in reach and all needs met, continued eating breakfast. Education OT Patient Education: Correct positioning, Modified ADL techniques, Progress toward Goal/Update tx plan, Purpose of tx/functional activities Teaching Recipient: Patient Teaching Methods: Discussion Response to Teaching: Verbalize Understanding OT Usp Goals Customer Acquisition Specialist Goals Time Frame: Mar 29, 2021 Eating (QC): 6 Oral Hygiene (QC): 6 Toileting Hygiene (QC): 6 Shower/Bathe Self (QC): 6 Upper Body Dressing (QC): 6 Lower Body Dressing (QC): 6 On/Off Footwear (QC): 6 Additional Goals: 1-Demonstrate ADL Tasks, 2-Verbalize Understanding, 3- ImproveStrength/[place] 1=Demonstrate adherence to instructed precautions during ADL tasks. 2=Patient will verbalize/demonstrate understanding of assistive devices/modifications for ADL. 3=Patient will improve strength/tolerance for activity to enable patient to perform ADL's. OT Education/Plan Problem List/Assessment Assessment: Decreased Activ Tolerance, Decreased UE Strength, Impaired Funct Balance, Impaired I ADL's, Impaired Self-Care Skills Discharge Recommendations Plan/Recommendations: Continue POC Treatment Plan/Plan of Care Patient would benefit from OT for education, treatment and training to promote independence in ADL's, mobility, safety and/or upper extremity function for ADL's. Plan of Care: ADL Retraining, Functional Mobility, UE Funct Exercise/Act Treatment Duration: Mar 29, 2021 Frequency: 3 times per week (3-5 times per week) Estimated Hrs Per Day: .25 hour per day Rehab Potential: Fair Time/GCodes Start Time: 11:05 Stop Time: 11:20 Total Time Billed (hr/min): 15 Billed Treatment Time 1, DAGO ANDERSEN OT Mar 21, 2021 11:27
[2021-03-21 11:28] VITALS: BP 120/62
--- NOTE | 2021-03-21 11:29 | Physical Therapy Evaluation ---
PT Evaluation-General Medical Diagnosis Admission Date Mar 20, 2021 at 15:10 Medical Diagnosis: UTI, hyponatremia Onset Date: Mar 20, 2021 Therapy Diagnosis Therapy Diagnosis: impaired mobility, balance Height/Weight Height (Feet): 0 Height (Inches): 65.00 Weight (Pounds): 102 Precautions Precautions/Isolations: Contact Isolation, Droplet Isolation, Fall Prevention Referral Physician: Camille Brown DO Reason for Referral: Evaluation/Treatment Medical History Additional Medical History Past Medical History Surgeries: Appendectomy, Gallbladder Anxiety, Depression Reviewed History: Yes Social History Home: Single Level Current Living Status: Children (lives with son) Entry Into Home: Stairs Without Railing PT Steps Into Home: 4 Prior Prior Level of Function SCALE: Activities may be completed with or without assistive devices. 2-Dtwqbpxofs-rjulqvl completes the activity by him/herself with no assistance from a helper. 5-Set-up or Clean-up Assistance-helper sets up or cleans up; patient completes activity. [place] assists only prior to or following the activity. 4-Supervision or Touching Assistance-helper provides verbal cues and/or t ouching/steadying and/or contact guard assistance as patient completes activity. Assistance may be provided throughout the activity or intermittently. 3-Partial/Moderate Assistance-helper does LESS THAN HALF the effort. [place] lifts, holds or supports trunk or limbs, but provides less than half the effort. 2-Substantial/Maximal Assistance-helper does MORE THAN HALF the effort. [place] lifts or holds trunk or limbs and provides more than half the effort. 6-Hzeuifspi-utpiqk does ALL the effort. Patient does none of the effort to complete the activity. Or, the assistance of 2 or more helpers is required for the patient to complete the activity. If activity was not attempted, code reason: 7-Patient Refused. 9-Not Applicable-not attempted and the patient did not perform the activity before the current illness, exacerbation or injury. 10-Not Attempted due to Environmental Limitations-(lack of equipment, weather restraints, etc.). 88-Not Attempted due to Medical Conditions or Safety Concerns. Bed Mobility: 6 Transfers (B,C,W/C): 6 Gait: 6 Stairs: 6 Indoor Mobility (Ambulation): Independent Stairs: Independent Patient states she ambulated without an assistive device and walked all over town. PT Evaluation-Current Subjective Patient in bed pre tx, agrees to PT, has 2/10 headache. Pt/Family Goals to be independent at home Objective Patient Orientation: Person, Place, Situation Attachments: IV ROM/Strength ROM Lower Extremities WNL Strength Lower Extremities grossly 4/5 BLE Neuromuscular (Tone, Coordination, Reflexes) Patient seems to have intact peripheral vision but has trouble tracking bilaterally in lower quadrants Sensory Hearing: Functional Sensation Right Lower Extremit: Intact Sensation Left Lower Extremity: Intact Transfers Roll Left to Right (QC): 6 Lying to Sitting/Side of Bed(Q: 6 Sit to Stand (QC): 4 Chair/Tyr-vw-Jwzqt Xfer(QC): 4 Gait Does the Patient Walk?: Yes Mode of Locomotion: Walk Anticipated Mode of Locomotion: Walk Walk 10 feet (QC): 4 Walk 50 ft with 2 Turns(QC): 4 Walk 150 ft (QC): 4 Distance: 300' Gait Assistive Device: FWW Comments/Gait Description CGA, patient needs steadying assist when turning, she was a little unsteady after first standing, she tends to drift to the left during ambulation Balance Sitting Static: Normal Sitting Dynamic: Normal Standing Static: Fair Standing Dynamic: Fair Assessment/Needs Patient in recliner post tx with nurse call, phone, tray, all needs met. Patient has impaired mobility, balance. Patient needs CGA for transfers and ambulation. Rehab Potential: Fair PT Senior Care Goals Senior Care Goals PT Batch Heat Treat Operator Goals Time Frame: Mar 28, 2021 Roll Left & Right (QC): 6 Sit to Lying (QC): 6 Lying-Sitting on Side/Bed(QC): 6 Sit to Stand (QC): 6 Chair/Qbo-hv-Inibl Xfer(QC): 6 Walk 10 feet (QC): 6 Walk 50ft with 2 Turns (QC): 6 Walk 150 ft (QC): 6 PT Plan Problem List Problem List: Activity Tolerance, Functional Strength, Safety, Balance, Gait, Transfer, ROM Treatment/Plan Treatment Plan: Continue Plan of Care Treatment Plan: Education, Functional Activity [place], Functional Strength, Gait, Safety, Therapeutic Exercise, Transfers Treatment Duration: Mar 28, 2021 Frequency: 6 times per week Estimated Hrs Per Day: .25 hour per day Patient and/or Family Agrees t: Yes Safety Risks/Education Patient Education: Gait Training, Transfer Techniques, Correct Positioning, Safety Issues Teaching Recipient: Patient Teaching Methods: Demonstration, Discussion Response to Teaching: Reinforcement Needed Discharge Recommendations Plan Patient will perform bed mobility and transfer training, balance and endurance training, functional strengthening, stair training, gait training, and education, to improve functional mobility and independence at home. Therapy Discharge Recommendati: Home & Family, Post Acute PT Time/GCodes Time In: 1105 Time Out: 1119 Total Billed Treatment Time: 14 Total Billed Treatment 1 visit EVL 14' ISAI GIRALDO PT Mar 21, 2021 11:29
[2021-03-21] MEDS ORDERED: DIPHENOXYLATE/ATROPINE 2.5MG/0.025MG (LOMOTIL) TAB PO PRN (11:30)
--- NOTE | 2021-03-21 12:41 | Progress Note ---
NELLY GODFREY 03/21/21 1241: Progress Note Hospital course: Angelika is a 75yo F who presented to the ER on 03/20/21 with generalized weakness, confusion, nausea, and vomiting. Her daughter called an ambulance for the patient when the daughter came to the patient's home and saw how confused the patient was acting. Patient was admitted for hyponatremia and U TI. Patient was treated with IV Ceftriaxone and will be switched to oral Ceftriaxone upon discharge. Her Na was corrected by 03/21/21. Will be working with OT and PT before being discharged. Patient was fully oriented upon discharge. 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 Patient discussed options and resources with social workers for her son if she were to ever be hospitalized again. CAMILLE OLIVA DO 03/22/21 0545: Supervisory-Addendum Brief Verification & Attestation Participated in pt care: history, MDM, physical Personally performed: exam, history, MDM, supervision of care Care discussed with: Medical Student Procedures: n/a Results interpretation: Verified all documentation Verification and Attestation of Medical Student E/M Service A medical student performed and documented this service in my presence. I reviewed and verified all information documented by the medical student and made modifications to such information, when appropriate. I personally performed the physical exam and medical decision making. Camille Oliva, Mar 22, 2021,05:45 NELLY GODFREY Mar 21, 2021 12:41 CAMILLE OLIVA DO Mar 22, 2021 05:45
[2021-03-21] MEDS ORDERED: SERTRALINE 50 MG (ZOLOFT) TABLET PO SCH (21:00)
[2021-03-22] MEDS ORDERED: LEVOTHYROXINE 25 MCG (LEVOTHROID) TAB PO SCH (09:00)
== END 2021-03-21 15:10 | disposition home or self-care (01) ==
LOC: EDUNIT# 12:29 → ER 12:31 → 4TH 15:10
PROVIDERS: ADMIT Internal Medicine; ATTEND Internal Medicine
DX: E87.1 Hypo-osmolality and hyponatremia (principal); N39.0 Urinary tract infection, site not specified; K52.9 Noninfective gastroenteritis and colitis, unspecified; F41.9 Anxiety disorder, unspecified; F32.A Depression, unspecified; E03.9 Hypothyroidism, unspecified; Z98.890 Other specified postprocedural states; Z79.899 Other long term (current) drug therapy; Z79.2 Long term (current) use of antibiotics
CPT/HCPCS: 36415; 51701; 80053; 81000; 82274; 83605; 84439; 84443; 85025; 87015; 87040; 87045; 87046; 87077; 87088; 87186; 87324; 87328; 87329; 87449; 87636; 87899; 94760

== ENCOUNTER → 2021-04-28 | Outpatient (CLI) | payer MEDICARE, OTHER ==
[~2021-04-28] MED LIST changes: +ACET-2267 PO; +ALPR0.254 PO; +DIPH1TAB PO; +LEVO25TA5 PO; +NF-NACL1GT PO; +SERT-413 PO
--- NOTE | 2021-04-28 14:27 | Diagnostic Imaging Report ---
INDICATION: Left breast tenderness and left nipple pain. COMPARISON: Correlation is made with the diagnostic mammogram performed earlier this same day. FINDINGS: Sonographic interrogation in the area of pain in the periareolar and retroareolar region was performed. No sonographic abnormality is seen. No solid or cystic mass is detected. IMPRESSION: No sonographic abnormality is detected. ACR BI-RADS Category 1: Negative. Result letter will be mailed to the patient. Note: At least 10% of breast cancer is not imaged by mammography. Dictated by: Dictated on workstation # [id number]
--- NOTE | 2021-04-28 15:23 | Diagnostic Imaging Report ---
INDICATION: Left-sided nipple pain. COMPARISON: No prior studies are available for comparison. TECHNIQUE: 2D and 3D bilateral diagnostic mammography was performed with CAD. FINDINGS: Both breasts are heterogeneously dense, limiting the sensitivity of mammography. There are scattered benign calcifications bilaterally. No mass or malignant-appearing microcalcification are seen. The axillae are unremarkable. IMPRESSION: No mammographic features suspicious for malignancy are identified. Even so, sonographic interrogation of the area of pain around the left nipple is recommended and will be performed today. ACR BI-RADS Category 0: Incomplete. (Needs additional imaging evaluation). Result letter will be mailed to the patient. Note: At least 10% of breast cancer is not imaged by mammography. Dictated by: Dictated on workstation # [id number]
== END ==
LOC: RAD 13:45
PROVIDERS: ATTEND Nurse Practitioner
DX: N64.4 Mastodynia (principal); R92.8 Other abnormal and inconclusive findings on diagnostic imaging of breast
CPT/HCPCS: 76642; 77066; G0279; 77062

== ENCOUNTER 2021-12-04 00:07 | Observation (INO) | payer MEDICARE, OTHER ==
[2021-12-04] VITALS (7 sets, daily range): BP systolic 76–124; BP diastolic 47–77
[~2021-12-04] VITALS: Ht 165 cm; Wt 47.0 kg
[2021-12-04] MEDS ORDERED: LACTATED RINGERS 1,000 ML IV ONE (00:15)
[2021-12-04] MEDS ORDERED: ONDANSETRON 4 MG/2 ML (SDV) Z0FRAN IVP ONE (00:15)
[2021-12-04 00:28] LABS: BASOPHILS % (AUTO) 0 % (0-10); EOSINOPHILS % (AUTO) 0 % (0-10); HEMATOCRIT 36 % (35-52); HEMOGLOBIN 12.3 g/dL (11.5-16.0); LYMPHOCYTES # (AUTO) 1.2 10^3/uL (1.0-4.0); LYMPHOCYTES % (AUTO) 11 % (12-44); MEAN CORPUSCULAR HEMOGLOBIN 29 pg (25-34); MEAN CORPUSCULAR HGB CONC 34 g/dL (32-36); MEAN CORPUSCULAR VOLUME 84 fL (80-99); MEAN PLATELET VOLUME 9.1 fL (9.0-12.2); MONOCYTES # (AUTO) 0.6 10^3/uL (0.0-1.0); MONOCYTES % (AUTO) 6 % (0-12); NEUTROPHILS # (AUTO) 8.9 10^3/uL (1.8-7.8); NEUTROPHILS % (AUTO) 82 % (42-75); PLATELET COUNT 289 10^3/uL (130-400); WHITE BLOOD COUNT 10.8 10^3/uL (4.3-11.0)
[2021-12-04 00:38] LABS: CHLORIDE 88 MMOL/L (98-107); POTASSIUM 3.5 MMOL/L (3.6-5.0)
[2021-12-04 00:39] LABS: ALBUMIN 3.8 GM/DL (3.2-4.5)
[2021-12-04 00:40] LABS: AMYLASE 123 U/L (25-125); CALCIUM 8.6 MG/DL (8.5-10.1)
[2021-12-04 00:41] LABS: AMMONIA 18 UMOL/L (11-32); GLUCOSE 137 MG/DL (70-105)
[2021-12-04 00:42] LABS: CARBON DIOXIDE 18 MMOL/L (21-32); TOTAL PROTEIN 6.5 GM/DL (6.4-8.2)
[2021-12-04 00:43] LABS: BILIRUBIN,TOTAL 1.2 MG/DL (0.1-1.0)
[2021-12-04 00:44] LABS: FIBRIN DEGRADATION PRODUCTS 0.56 UG/ML (0.00-0.49); PROTHROMBIN TIME PATIENT 13.2 SEC (12.2-14.7)
[2021-12-04 00:45] LABS: ALKALINE PHOSPHATASE 91 U/L (40-136); GFR ESTIMATED 77
[2021-12-04 00:46] LABS: BUN/CREATININE RATIO 13
[2021-12-04 00:48] LABS: ALANINE AMINOTRANSFERASE 21 U/L (0-55); MAGNESIUM 1.5 MG/DL (1.6-2.4)
[2021-12-04 00:49] LABS: CREATINE KINASE 352 U/L (29-168); LIPASE 47 U/L (8-78)
[2021-12-04 00:52] LABS: ACETAMINOPHEN < 10 UG/ML (10-30); SODIUM 122 MMOL/L (135-145)
[2021-12-04 01:02] LABS: ERYTHROCYTE SEDIMENTATION RATE 14 MM/HR (0-30)
[2021-12-04 01:03] LABS: CREATINE KINASE MB 7.5 NG/ML (<6.6)
[2021-12-04 01:09] LABS: TSH (THYROID ANALYZER) 3.26 UIU/ML (0.35-4.94)
[2021-12-04 01:11] LABS: BILIRUBIN,URINE NEGATIVE (NEGATIVE); CLARITY,URINE SL CLOUDY; COLOR,URINE YELLOW; GLUCOSE, URINE (UA) NEGATIVE (NEGATIVE); KETONES,URINE 2+ (NEGATIVE); LEUKOCYTE ESTERASE ,URINE NEGATIVE (NEGATIVE); NITRITE,URINE NEGATIVE (NEGATIVE); PROTEIN,URINE NEGATIVE (NEGATIVE)
[2021-12-04] MEDS ORDERED: CEFEPIME INJECTION 1,000 MG in NS (IVPB) 50 ML IV ONE (01:15)
[2021-12-04] MEDS ORDERED: NS IV 1000 ML 1,000 ML IV SCH (01:15)
[2021-12-04 01:21] LABS: AMPHETAMINE SCREEN, URINE NEGATIVE (NEGATIVE); BARBITURATE SCREEN URINE NEGATIVE (NEGATIVE); BENZODIAZEPINES SCREEN URINE NEGATIVE (NEGATIVE); CANNABINOID SCREEN, URINE NEGATIVE (NEGATIVE); COCAINE SCREEN URINE NEGATIVE (NEGATIVE); METHADONE STAT NEGATIVE (NEGATIVE); OPIATE SCREEN URINE NEGATIVE (NEGATIVE); OXYCODONE STAT NEGATIVE (NEGATIVE); PROPOXYPHENE STAT NEGATIVE (NEGATIVE); TRICYCLIC ANTIDEPRESSANTS SCRE NEGATIVE (NEGATIVE)
[2021-12-04 01:25] LABS: BACTERIA,URINE NEGATIVE /HPF
--- NOTE | 2021-12-04 01:41 | ED General ---
General Chief Complaint: General Problems/Pain Stated Complaint: NAUSEA,ABD PAIN Nursing Triage Note: PT TO ED FROM HOME BY EMS WITH C/O ABD PAIN AND NAUSEA. PT WILL NOT ANSWER QUESTIONS AT THIS TIME, STATES "MY STOMACH HURTS." EMS REPORTS PT O2 98% ON RA UPON ARRIVAL, DROPPED TO 90% EN ROUTE, PLACED ON 2 L NC. PT SCRATCHING AT HEAD AND STOMACH UPON ARRIVAL. PT MOANING AND GRUNTING. Source of Information: Patient (EXTREMELY POOR HISTORIAN AND NOT WANTING TO ANSWER QUESTIONS), Old Records (ALL PMH IS FROM OLD RECORD) History of Present Illness Date Seen by Provider: Dec 04, 2021 Time Seen by Provider: 00:07 Initial Comments PT ARRIVES VIA EMS FROM HOME EMS REPORTS THAT PT'S SON CALLED FOR PT WITH "PAIN AND SHAKING" PT WOULD NOT ANSWER MOST QUESTIONS FOR EMS, AT ONE POINT SHE DID ADMIT TO ABDOMINAL PAIN AND NAUSEA/VOMITING TO THEM EMS REPORT THERE WERE BEDBUGS PRESENT ON PT AND ON HER CHAIR WHERE SHE WAS SITTING. PT IS CONSTANTLY SCRATCHING HER HEAD ON ARRIVAL. EMS REPORT THAT THERE WERE MEDICATIONS ON A STAND NEXT TO HER, ALL WITH NEARLY FULL BOTTLES, AND ALL WERE OVER A YEAR OLD: DIPHENOXYLATE TRAZADONE LEVOTHYROXINE MIRTAZIPINE THEY ALSO NOTED BOTTLES IN A MEDICATION BOX, ALL DATED 2018: MIRTAZIPINE MONTELUKAST ALPRAZOLAM ON A PREVIOUS RECORD FROM 03/2021, PT WAS NOTED TO HAVE CHRONIC TREMORS. SHE WAS ADMITTED AT THAT TIME FOR HYPONATREMIA, NAUSEA/VOMITING AND UTI PCP: DR. ESTRADA IS LISTED HER PHYSICIAN ON PRIOR VISIT IN 03/2021 Allergies and Home Medications Allergies Coded Allergies: Penicillins (Verified Allergy, Unknown, 03/20/21) codeine (Verified Allergy, Unknown, 03/20/21) Patient Home Medication List Home Medication List Reviewed: Yes ALPRAZolam (ALPRAZolam) 0.25 Mg Tablet, 0.25 MG PO DAILY PRN for ANXIETY, (Reported) Entered as Reported by: EFREM SANTACRUZ on 03/21/21 1046 Acetaminophen (Tylenol Extra Strength) 500 Mg Tablet, 1,000 MG PO Q8H PRN for PAIN-MILD (1-4), (Reported) Entered as Reported by: EFREM SANTACRUZ on 03/21/21 1046 Cefdinir (Cefdinir) 300 Mg Capsule, 300 MG PO BID Prescribed by: JT OLIVA on 03/21/21 1055 Diphenoxylate HCl/Atropine (Lomotil 2.5-0.025 mg Tablet) 1 Each Tablet, 1 EA PO DAILY PRN for DIARRHEA, (Reported) Entered as Reported by: EFREM SANTACRUZ on 03/21/21 1046 Levothyroxine Sodium (Levothyroxine Sodium) 25 Mcg Tablet, 25 MCG PO DAILY, (Reported) Entered as Reported by: EFREM SANTACRUZ on 03/21/21 1050 Sertraline HCl (Sertraline HCl) 50 Mg Tablet, 50 MG PO HS, (Reported) Entered as Reported by: EFREM SANTACRUZ on 03/21/21 1046 Sodium Chloride (Sodium Chloride) 1 Gm Tab, 1 GM PO BID Prescribed by: JT OLIVA on 03/21/21 1055 Review of Systems Review of Systems Constitutional: other (PER HPI) Past Qrumgsy-Mbgmht-Vcgfrg Hx Patient Social History Pt feels they are or have been: Unable to obtain Immunizations Up To Date First/Initial COVID19 Vaccinat: UNSURE Second COVID19 Vaccination Herbie: UNSURE Past Medical History Surgery/Hospitalization HX: UNKNOWN Surgeries: Yes Appendectomy, Gallbladder Respiratory: Yes Pneumonia Cardiac: No Neurological: Yes (TREMOR-? ANXIETY RELATED?) Genitourinary: No Gastrointestinal: No Musculoskeletal: No Endocrine: Yes Hypothyroidsim HEENT: No Cancer: No Psychosocial: Yes Anxiety, Depression Integumentary: No Blood Disorders: No Family Medical History PT DID HAVE AN NORMAL MAMMOGRAM AND NORMAL LEFT BREAST ULTRASOUND 04/2021 Physical Exam Vital Signs Vital Signs - First Documented 12/04/21 00:10 Temp 36.7 Pulse 85 Resp 24 B/P (MAP) 129/76 (93) Pulse Ox 99 O2 Delivery Nasal Cannula O2 Flow Rate 2.00 Capillary Refill : Height, Weight, BMI Height: 0'65.00" Weight: 102lbs. oz. 46.082723gp; 16.00 BMI Method: General Appearance: Cachetic (WITH MODERATE AMOUNT OF LOOSE SKIN NOTED ON TRUNK, ARMS AND LEGS. ), Other (PT KEEPS EYES CLOSED. CONSTANT VIGOROUS SCRATCHING OF SCALP, THEN ALSO SCRATCHING HER ABDOMEN AND THEN HER LEGS LATER DURING STAY. PT IS CONSTANTLY MOVING. WAILING AND MOANDING LOUDLY AND MAKING GUTTERAL NOISES. CONSTANT MOUTH MOVEMENTS. TREMORS ON RIGHT ARM AND HAND. ANXIOUS. HYPERVENTILATING. ) HEENT: Other (NO UPPER TEETH; SIGNIFICANT TEMPORAL WASTING) Respiratory: Normal Breath Sounds, No Accessory Muscle Use, No Respiratory Distress Cardiovascular: Regular Rate, Rhythm, No Edema, No JVD, No Murmur, Normal Peripheral Pulses Gastrointestinal: Soft, Tenderness (SUPRAPUBIC AREA) Back: No CVA Tenderness Extremity: Normal Inspection, No Pedal Edema Neurologic/Psychiatric: No Motor/Sensory Deficits, Other (AWAKE BUT KEEPS EYES CLOSED, NOT WANTING TO ANSWER QUESTIONS AND DOES NOT FOLLOW COMMANDS WELL. FOR EXAMPLE, WHEN ASKED TO SIMPLY BEND HER KNEE WHILE LAYING IN BED , SHE RAISES HER ENTIRE LEG UP IN THE AIR. SHE DOES NOT TALK AT ALL DURING MY EXAM. SHE DID HAVE A FEW YES/NO ANSWERS TO A COUPLE OF QUESTIONS BY RN, OTHERWISE DID NOT TALK. VERY TREMULOUS IN ARMS/HANDS AND FEET, WITH CONSTANT GENERALIZED BODY MOVEMENTS. ) Skin: Normal Color, Warm/Dry; No Rash; Other (NO VISIBLE RASH ANYWHERE, NO NITS OR LICE NOTED. NO BED BUGS NOTED ON EXAM. SHE HAS AN AREA OF ERYTHEMA AND SUPERFICIAL EXCORIATION TO LEFT LATERAL HIP AREA, WITH A CLEAN 4X4 GAUZE AND TAPE ON THE AREA --PT ARRIVES WITH THIS IN PLACE. PT IS CONSTANTLY SCRATCHING OVER MOST OF HER BODY. ) Focused Exam Sepsis Stage: Sepsis (POSSIBLE SEPSIS DUE TO ELEVATED LACTIC ACID LEVEL) Possible Source: Unknown Lactate Level 12/04/21 00:24: Lactic Acid Level 3.49*H 12/04/21 02:48: Lactic Acid Level 3.55*H Time of Focused Exam: 03:00 Respiratory: Normal Breath Sounds, No Accessory Muscle Use, No Respiratory Distress Cardiovascular: Regular Rate, Rhythm, No Edema, No JVD, No Murmur, Normal Peripheral Pulses Capillary Refill: Less Than 3 Seconds Skin: normal color, warm/dry Lactic Acid Level Laboratory Tests Test 12/04/21 00:24 12/04/21 02:48 Lactic Acid Level 3.49 MMOL/L (0.50-2.00) *H 3.55 MMOL/L (0.50-2.00) *H Within 3hrs of presentation: Admin fluids, Admin ABX, Blood cultures prior to ABX's, Focus exam, Lactate level Progress/Results/Core Measures Suspected Sepsis SIRS Temperature: Pulse: 85 Respiratory Rate: 24 Laboratory Tests 12/04/21 00:24: White Blood Count 10.8 Blood Pressure 129 /76 Mean: 93 12/04/21 00:24: Lactic Acid Level 3.49*H 12/04/21 02:48: Lactic Acid Level 3.55*H Laboratory Tests 12/04/21 00:24: Creatinine 0.80, INR Comment 1.0, Platelet Count 289, Total Bilirubin 1.2H Results/Orders Lab Results Laboratory Tests Test 12/04/21 00:24 12/04/21 00:35 12/04/21 00:53 12/04/21 02:48 Range/Units White Blood Count 10.8 4.3-11.0 10^3/uL Red Blood Count 4.25 3.80-5.11 10^6/uL Hemoglobin 12.3 11.5-16.0 g/dL Hematocrit 36 35-52 % Mean Corpuscular Volume 84 80-99 fL Mean Corpuscular Hemoglobin 29 25-34 pg Mean Corpuscular Hemoglobin Concent 34 32-36 g/dL Red Cell Distribution Width 12.4 10.0-14.5 % Platelet Count 289 130-400 10^3/uL Mean Platelet Volume 9.1 9.0-12.2 fL Immature Granulocyte % (Auto) 1 % Neutrophils (%) (Auto) 82 H 42-75 % Lymphocytes (%) (Auto) 11 L 12-44 % Monocytes (%) (Auto) 6 0-12 % Eosinophils (%) (Auto) 0 0-10 % Basophils (%) (Auto) 0 0-10 % Neutrophils # (Auto) 8.9 H 1.8-7.8 10^3/uL Lymphocytes # (Auto) 1.2 1.0-4.0 10^3/uL Monocytes # (Auto) 0.6 0.0-1.0 10^3/uL Eosinophils # (Auto) 0.0 0.0-0.3 10^3/uL Basophils # (Auto) 0.0 0.0-0.1 10^3/uL Immature Granulocyte # (Auto) 0.1 0.0-0.1 10^3/uL Erythrocyte Sedimentation Rate 14 0-30 MM/HR Prothrombin Time 13.2 12.2-14.7 SEC INR Comment 1.0 0.8-1.4 Activated Partial Thromboplast Time 26 24-35 SEC D-Dimer 0.56 H 0.00-0.49 UG/ML Sodium Level 122 *L 135-145 MMOL/L Potassium Level 3.5 L 3.6-5.0 MMOL/L Chloride Level 88 L 98-107 MMOL/L Carbon Dioxide Level 18 L 21-32 MMOL/L Anion Gap 16 H 5-14 MMOL/L Blood Urea Nitrogen 10 7-18 MG/DL Creatinine 0.80 0.60-1.30 MG/DL Estimat Glomerular Filtration Rate 77 BUN/Creatinine Ratio 13 Glucose Level 137 H 70-105 MG/DL Lactic Acid Level 3.49 *H 3.55 *H 0.50-2.00 MMOL/L Calcium Level 8.6 8.5-10.1 MG/DL Corrected Calcium 8.8 8.5-10.1 MG/DL Magnesium Level 1.5 L 1.6-2.4 MG/DL Total Bilirubin 1.2 H 0.1-1.0 MG/DL Aspartate Amino Transf (AST/SGOT) 38 H 5-34 U/L Alanine Aminotransferase (ALT/SGPT) 21 0-55 U/L Alkaline Phosphatase 91 40-136 U/L Ammonia 18 11-32 UMOL/L Total Creatine Kinase 352 H 29-168 U/L Creatine Kinase MB 7.5 *H <6.6 NG/ML Myoglobin 409.3 H 10.0-92.0 NG/ML Troponin I < 0.028 <0.028 NG/ML C-Reactive Protein High Sensitivity 0.08 0.00-0.50 MG/DL B-Type Natriuretic Peptide 26.0 <100.0 PG/ML Total Protein 6.5 6.4-8.2 GM/DL Albumin 3.8 3.2-4.5 GM/DL Amylase Level 123 25-125 U/L Lipase 47 8-78 U/L Procalcitonin 0.02 <0.10 NG/ML TSH Meagher Testing 3.26 0.35-4.94 UIU/ML Acetaminophen Level < 10 L 10-30 UG/ML Serum Alcohol < 10 <10 MG/DL Influenza Type A (RT-PCR) Not Detected Not Detecte Influenza Type B (RT-PCR) Not Detected Not Detecte SARS-CoV-2 RNA (RT-PCR) Not Detected Not Detecte Urine Color YELLOW Urine Clarity SL CLOUDY Urine pH 7.0 5-9 Urine Specific Isom <=1.005 1.016-1.022 Urine Protein NEGATIVE NEGATIVE Urine Glucose (UA) NEGATIVE NEGATIVE Urine Ketones 2+ H NEGATIVE Urine Nitrite NEGATIVE NEGATIVE Urine Bilirubin NEGATIVE NEGATIVE Urine Urobilinogen 0.2 < = 1.0 MG/DL Urine Leukocyte Esterase NEGATIVE NEGATIVE Urine RBC (Auto) TRACE-I H NEGATIVE Urine RBC 2-5 H /HPF Urine WBC NONE /HPF Urine Squamous Epithelial Cells NONE /HPF Urine Crystals NONE /LPF Urine Bacteria NEGATIVE /HPF Urine Casts NONE /LPF Urine Mucus NEGATIVE /LPF Urine Culture Indicated NO Urine Opiates Screen NEGATIVE NEGATIVE Urine Oxycodone Screen NEGATIVE NEGATIVE Urine Methadone Screen NEGATIVE NEGATIVE Urine Propoxyphene Screen NEGATIVE NEGATIVE Urine Barbiturates Screen NEGATIVE NEGATIVE Ur Tricyclic Antidepressants Screen NEGATIVE NEGATIVE Urine Phencyclidine Screen NEGATIVE NEGATIVE Urine Amphetamines Screen NEGATIVE NEGATIVE Urine Methamphetamines Screen NEGATIVE NEGATIVE Urine Benzodiazepines Screen NEGATIVE NEGATIVE Urine Cocaine Screen NEGATIVE NEGATIVE Urine Cannabinoids Screen NEGATIVE NEGATIVE My Orders Orders - LEE SMYTH DO Ed Iv/Invasive Line Start (12/04/21 00:12) Ekg Tracing (12/04/21 00:12) Monitor-Rhythm Ecg Trace Only (12/04/21 00:12) Acetaminophen (12/04/21 00:12) Alcohol (12/04/21 00:12) Ammonia (12/04/21 00:12) Amylase (12/04/21 00:12) Bnp Saurabh (12/04/21 00:12) Cbc With Automated Diff (12/04/21 00:12) Comprehensive Metabolic Panel (12/04/21 00:12) Creatine Kinase (12/04/21 00:12) Creatine Kinase Mb (12/04/21 00:12) Hs C Reactive Protein (12/04/21 00:12) Fibrin Degradation Products (12/04/21 00:12) Drug Screen Stat (Urine) (12/04/21 00:12) Lipase (12/04/21 00:12) Magnesium (12/04/21 00:12) Procalcitonin (Pct) (12/04/21 00:12) Protime With Inr (12/04/21 00:12) Partial Thromboplastin Time (12/04/21 00:12) Thyroid Analyzer (12/04/21 00:12) Ua Culture If Indicated (12/04/21 00:12) Erythrocyte Sedimentation Rate (12/04/21 00:12) Myoglobin Serum (12/04/21 00:12) Troponin I Saurabh (12/04/21 00:12) Chest 1 View, Ap/Pa Only (12/04/21 00:12) Ed Iv/Invasive Line Start (12/04/21 00:12) Lactated Ringers (Lr 1000 Ml Iv Solution (12/04/21 00:15) Ondansetron Injection (Zofran Injectio (12/04/21 00:15) Blood Culture (12/04/21 00:14) Covid 19 Inhouse Test (12/04/21 00:14) Influenza A And B By Pcr (12/04/21 00:14) Isolation Central Supply Req (12/04/21 00:14) Lactic Acid Analyzer (12/04/21 00:14) Ct Head Wo-R/O Stroke (12/04/21 01:05) Ct Shahla Chest/Noang Abd-Pelv W (12/04/21 01:05) Ed Iv/Invasive Line Start (12/04/21 01:06) Ns Iv 1000 Ml (Sodium Chloride 0.9%) (12/04/21 01:15) Cefepime Injection (Maxipime Injection) (12/04/21 01:15) Catheter(Urinary) Insert & Ass 03,15 (12/04/21 01:09) Iohexol Injection (Omnipaque 350 Mg/Ml 1 (12/04/21 02:15) Sodium Chloride Flush (Catheter Flush Sy (12/04/21 02:15) Ns (Ivpb) (Sodium Chloride 0.9% Ivpb Bag (12/04/21 02:15) Ketorolac Injection (Toradol Injection) (12/04/21 02:45) Olanzapine Orally Dissolve Tab (Zyprexa (12/04/21 02:45) Medications Given in ED Current Medications Medications Dose Ordered Sig/Milan Route Start Time Stop Time Status Last Admin Dose Admin Cefepime HCl 1000 mg/Sodium Chloride 50 ml @ 100 mls/hr ONCE ONCE IV 12/04/21 01:15 12/04/21 01:44 DC 12/04/21 01:59 100 MLS/HR Iohexol 100 ml ONCE ONCE IV 12/04/21 02:15 12/04/21 02:16 DC 12/04/21 02:08 70 ML Ketorolac Tromethamine 30 mg ONCE ONCE IV 12/04/21 02:45 12/04/21 02:50 DC 12/04/21 03:00 30 MG Lactated Ringer's 1,000 ml @ 0 mls/hr Q0M ONCE IV 12/04/21 00:15 12/04/21 00:16 DC 12/04/21 00:36 0 MLS/HR Olanzapine 2.5 mg ONCE ONCE PO 12/04/21 02:45 12/04/21 02:50 DC 12/04/21 03:00 2.5 MG Ondansetron HCl 4 mg ONCE ONCE IVP 12/04/21 00:15 12/04/21 00:16 DC 12/04/21 00:36 4 MG Sodium Chloride 10 ml NEEDED PRN IV 12/04/21 02:15 12/04/21 02:08 10 ML Sodium Chloride 100 ml ONCE ONCE IV 12/04/21 02:15 12/04/21 02:16 DC 12/04/21 02:08 60 ML Vital Signs/I&O 12/04/21 00:10 Temp 36.7 Pulse 85 Resp 24 B/P (MAP) 129/76 (93) Pulse Ox 99 O2 Delivery Nasal Cannula O2 Flow Rate 2.00 Capillary Refill : Blood Pressure Mean: 93 Progress Note : Progress Note PPE WORN AT ALL TIMES COVID AND FLU TESTING DONE SEPSIS PROTOCOL INITIATED GIVEN: -IV FLUIDS -ZOFRAN -ANTIBIOTICS. -ZYPREXA FOR AGITATION / ANXIETY -TORADOL FOR PAIN PT IS CALMER AND RESTING EASILY AND TREMORS HAVE STOPPED ALL VITALS STABLE, AND O2 SATS 100% THROUGHOUT ENTIRE ER STAY. NO DETERIORATION IN PT'S CONDITION DURING ER STAY ASKED PT MULTIPLE TIMES IF SHE WAS HAVING PAIN ANY WHERE, AND AT ONE POINT SHE PUT HER HAND OVER HER LOWER MID ABDOMEN, WHEN ASKED WHERE HER PAIN WAS. THIS CORRESPONDS WITH EXAM, WITH TENDERNESS OVER SUPRAPUBIC AREA/ LOWER MID ABDOMEN AREA. 0200--DAUGHTER IS NOW IN ROOM WITH PT. SHE STATES THAT SHE LAST SAW AND SPOKE WITH PT ABOUT A WEEK AGO, AND SHE WAS ACTING NORMAL. SHE STATES THAT THE PT LIVES WITH HER BROTHER / PT'S SON, WHO HAS MENTAL ISSUES- -BIPOLAR/SCHIZOPHRENIC. FAMILY MEMBERS REPORT THAT PT HAS LOST AN UNKNOWN AMOUNT OF WEIGHT OVER THE LAST YEAR--"JUST DOESN'T EAT MUCH" PER FAMILY. THEY REPORT SHE HAS ALWAYS BEEN SMALL AND THIN, BUT MUCH THINNER OVER THE LAST YEAR. ONE DAUGHTER STATES THAT SHE TOOK HER TO HER LAST DRValerie VISIT, AND SHE WEIGHED 96 LBS AT THAT TIME. ECG Initial ECG Impression Date: Dec 04, 2021 Initial ECG Impression Time: 00:24 Initial ECG Rate: 86 Initial ECG Rhythm: Normal Sinus (RBBB, WITH MUCH ARTIFACT FROM PT TREMORS) Diagnostic Imaging Comments CXR--CHRONIC LUNG CHANGES. NO ACUTE PROCESS, PENDING RADIOLOGIST REVIEW CT HEAD---NO ACUTE PROCESS, PER [facility] VIA FAX AT 0242 CT CHEST / ABDOMEN / PELVIS--NO ACUTE PROCESS, PER [facility] VIA FAX AT 0312 Reviewed: Reviewed by Me Departure Communication (Admissions) 0315--SPOKE WITH DR. GIVENS, HOSPITALIST, ACCEPTS PT FOR ADMIT. Impression Primary Impression: Altered mental status Additional Impressions: Hyponatremia Hypomagnesemia Abdominal pain Nausea & vomiting POSSIBLE SEPSIS, UNKNOWN SOURCE Lactic acidosis Disposition: ADMITTED INPATIENT Condition: Stable Admissions Decision to Admit Reason: Admit from ER (General) Decision to Admit/Date: Dec 04, 2021 Time/Decision to Admit Time: 03:15 Departure-Patient Inst. Referrals: MIKAEL ESTRADA MD (PCP) Primary Care Physician DONNA FREEMAN (Family) Primary Care Physician LEE SMYTH DO Dec 04, 2021 01:41
[2021-12-04] MEDS ORDERED: CATHETER FLUSH 10 ML SYR IV PRN (02:15)
[2021-12-04] MEDS ORDERED: NS 100 ML (IVPB) BAG IV ONE (02:15)
[2021-12-04] MEDS ORDERED: IOHEXOL 350 MG/ML 100 ML (OMNIPAQUE 350) VIAL IV ONE (02:15)
[2021-12-04] MEDS ORDERED: KETOROLAC 30 MG/ML VIAL IV ONE (02:45)
[2021-12-04] MEDS ORDERED: OLANZapine 5 MG ODT (ZyPREXA ZYDIS) PO ONE (02:45)
[2021-12-04] MEDS ORDERED: EPINEPHrine 1 MG INJECTION 4 MG in NS (IVPB) 248 ML IV SCH (05:00)
[2021-12-04] MEDS ORDERED: OLANZapine 5 MG ODT (ZyPREXA ZYDIS) SL PRN (05:00)
[2021-12-04] MEDS ORDERED: KETOROLAC 30 MG/ML VIAL IV PRN (05:00)
[2021-12-04] MEDS ORDERED: D5 NS W/KCL 20 MEQ/L 1,000 ML IV SCH (05:00)
[2021-12-04] MEDS ORDERED: NOREPINEPHRINE 8 MG/250 ML 250 ML IV SCH (05:00)
[2021-12-04] MEDS ORDERED: ONDANSETRON 4 MG/2 ML (SDV) Z0FRAN IV PRN (05:00)
[2021-12-04] MEDS ORDERED: VASOPRESSIN INJECTION 20 UNIT in NS (IVPB) 100 ML IV SCH (05:00)
[2021-12-04] MEDS: MAGNESIUM 1 GM/D5W 100 ML IVPB IV SCH ×2 (05:14→06:15)
[2021-12-04 05:25] LABS: BASOPHILS % (AUTO) 0 % (0-10); EOSINOPHILS % (AUTO) 0 % (0-10); HEMATOCRIT 34 % (35-52); HEMOGLOBIN 11.8 g/dL (11.5-16.0); LYMPHOCYTES # (AUTO) 0.8 10^3/uL (1.0-4.0); LYMPHOCYTES % (AUTO) 11 % (12-44); MEAN CORPUSCULAR HEMOGLOBIN 29 pg (25-34); MEAN CORPUSCULAR HGB CONC 35 g/dL (32-36); MEAN CORPUSCULAR VOLUME 85 fL (80-99); MEAN PLATELET VOLUME 9.3 fL (9.0-12.2); MONOCYTES # (AUTO) 0.6 10^3/uL (0.0-1.0); MONOCYTES % (AUTO) 8 % (0-12); NEUTROPHILS # (AUTO) 6.1 10^3/uL (1.8-7.8); NEUTROPHILS % (AUTO) 81 % (42-75); PLATELET COUNT 245 10^3/uL (130-400); WHITE BLOOD COUNT 7.5 10^3/uL (4.3-11.0)
[2021-12-04 05:34] LABS: ALBUMIN 3.3 GM/DL (3.2-4.5)
[2021-12-04 05:35] LABS: POTASSIUM 3.4 MMOL/L (3.6-5.0)
[2021-12-04 05:37] LABS: TOTAL PROTEIN 5.6 GM/DL (6.4-8.2)
[2021-12-04 05:39] LABS: BILIRUBIN,TOTAL 0.9 MG/DL (0.1-1.0)
[2021-12-04 05:41] LABS: CREATININE SERUM 0.72 MG/DL (0.60-1.30)
[2021-12-04 05:43] LABS: MAGNESIUM 1.5 MG/DL (1.6-2.4)
[2021-12-04] MEDS ORDERED: FLU QUAD HIGH DOSE 240 MCG/0.7 ML 2022-23 (FLUZONE) IM ONE (07:15)
--- NOTE | 2021-12-04 07:49 | Diagnostic Imaging Report ---
PROCEDURE: CT head wo r/o stroke. TECHNIQUE: Multiple contiguous axial images were obtained through the brain without the use of intravenous contrast. Auto Exposure Controls were utilized during the CT exam to meet ALARA standards for radiation dose reduction. INDICATION: Stroke. Neurologic deficit. COMPARISON: None. FINDINGS: No intracranial hemorrhage, mass effect, hydrocephalus or extra-axial fluid collections. No CT evidence of a territorial infarction. Osseous structures are intact. Paranasal sinuses and mastoids are unremarkable. IMPRESSION: No acute intracranial CT findings. Agree with preliminary interpretation. Dictated by: Dictated on workstation # [id number]
[2021-12-04] MEDS ORDERED: D5 1/2 NS W/KCL 20 MEQ/L 1,000 ML IV ONE (07:50)
--- NOTE | 2021-12-04 07:51 | Diagnostic Imaging Report ---
EXAM: CHEST 1 VIEW, AP/PA ONLY INDICATION: Dyspnea. COMPARISON: 04/06/2019. FINDINGS: Hyperinflation. No new focal pulmonary opacity. Normal heart size and central pulmonary vascularity. No pleural effusion or pneumothorax. IMPRESSION: 1. COPD. 2. No acute cardiopulmonary findings. Dictated by: Dictated on workstation # [id number]
[2021-12-04] MEDS: PANTOPRAZOLE 40 MG (PROTONIX) VIAL IV SCH (08:02)
[2021-12-04] MEDS: D5 1/2 NS W/KCL 20 MEQ/L 1,000 ML IV SCH ×3 (08:03→20:42)
--- NOTE | 2021-12-04 08:28 | Diagnostic Imaging Report ---
INDICATION: Abdominal pain and nausea. Unable to follow commands and/or answer questions. CTA chest, abdomen and pelvis Thin axial sections through the chest, abdomen and pelvis are obtained following intravenous contrast bolus. Multiplanar MIP images were reconstructed and reviewed. All CT scans use one or more of the following dose optimizing techniques: automated exposure control, MA and/or KvP adjustment based on patient size and exam type or iterative reconstruction. CORRELATION STUDY: None FINDINGS: CTA CHEST: Motion artifact compromises examination. Heart size enlarged but without disproportionate right heart strain. The thoracic aorta is unremarkable. No definitive pulmonary artery filling defects suggest pulmonary embolism given significant limitations. Lungs are clear. Biapical scarring with minimal atelectasis at the right lower lobe. No significant effusion or pneumothorax. No acute bony abnormality. Offset of the sternum is attributed to significant motion artifact. CT ABDOMEN and PELVIS: Limitations on this study predominantly owing to motion artifact. Liver, spleen, pancreas and adrenal glands are grossly unremarkable. Gallbladder absent. No overt bile duct dilatation. Kidneys with normal enhancement. Gastrointestinal tract demonstrate no definitive underlying obstruction. Stomach is distended with fluid and gas. Some fluid distention of small bowel. Likely colonic diverticulosis. No abdominal ascites and/or free air. Urinary bladder decompressed around a Riley catheter. Uterus unremarkable. Osseous structures demonstrate no acute findings. Advanced degenerative changes at L5-S1 level. IMPRESSION: CTA CHEST: 1. Significant limitations due to motion artifact. Given limitations, no CT evidence for pulmonary embolism or otherwise acute abnormality of the chest. CT ABDOMEN and PELVIS: 1. Significant limitations owing to motion artifact. No definite evidence for acute abnormality about the abdomen and/or pelvis. 2. Post cholecystectomy with mild bile duct dilatation likely reservoir effect. 3. Colonic diverticulosis without definitive evidence for acute diverticulitis. Dictated by: Dictated on workstation # [id number]
[2021-12-04] MEDS ORDERED: CEFEPIME 1,000 MG/NS 50 ML IVPB IV SCH ×2 (10:00)
--- NOTE | 2021-12-04 10:21 | ST Dysphagia Evaluation ---
Speech Evaluation-General Medical Diagnosis Altered Mental Status Onset Date: Dec 03, 2021 Therapy Diagnosis Therapy Diagnosis: Suspected Pharyngeal Dysphagia Precautions Precautions: Fall, Pressure Ulcer, Aspiration Precautions/Isolations: Aspiration, Fall Prevention, Contact/Enteric Isolation, Pressure Ulcer Referral Referring Physician: Dr. Bishop Reason for Referral: Evaluation/Treatment Medical History Current History The patient is a 76 year old female, who presented to the ED with complaints of abdominal pain. Speech PLF/Current-Dysphagia Prior Level of Function The patient does not provide information regarding her prior level of P.O. intake stating, "I like water, yes I drink a lot of water." The patient does appear thin for her frame and states she "doesn't really feel like anything," when offered oral trials by the clinician. Subjective The patient was seated upright in bed, awake and alert, upon entrance to her room by the clinician. The patient greeted the clinician appropriately and was agreeable to participation in the clinical bedside swallowing evaluation. The patient has her niece or grand daughter at bedside. The patient identified the family member as both throughout the assessment. Cognitive Status Patient Orientation: Person, Confused Oral Motor Skills Dentition: Edentalous (Upper), Natural Ability to Follow Directions: Fair Oral Expression Ability: Moderate Impairment Voice Voice Phonatory-Based Quality: Normal Voice Pitch: Normal Voice Loudness: Normal Face Facial Symmetry: Symmetrical Oral-Facial Assessment Oral-Facial Dentition: Normal Labial Seal Description: Normal Smile: Normal Lingual Protrusion: Normal Lingual ROM: Normal Volitional Dry Swallow: Yes Voluntary Cough: Yes Can Clear Throat Volitionally: Yes Productive Cough: Yes Productive Throat Clear: Yes Dysphagia Evaluation Consistencies Presented: Thin Liquid, Pureed The patient does not display oral impairments to the swallowing function at this time. Pharyngeal Phase: Multiple Swallow Attempts, Clears Throat Laryngeal elevation was present to palpation. The patient does display multiple swallows (approximately three) per bolus. Initially, the patient does not display s/s of suspected aspiration with thin liquids. Towards the close of the evaluation, approximately trial ten (straw), the patient displayed a subtle throat clear following the swallow of thin liquid. This behavior continued for the following three trials. The patient immediately displayed a throat clear following each trial of puree (five total). Per patient, "Yeah, I cough and choke. It feels like something is right here." The patient described a globus sensation at the laryngeal region. Dietary Recommendations: NPO Liquid Recommendations: NPO Recommendations: - The patient should continue the N.P. O. status pending completion of the scheduled video swallow (1130 on this date). - Frequent and excellent oral care to reduce the transfer of oral bacteria to the lungs should aspiration of secretions occur. - Speech pathology to provide additional recommendations following the video swallow. The video swallow was recommended due to the inconsistent and intermittent s/s of suspected aspiration with prolonged bolus trials of thin liquid and immedia tely with puree. Additionally due to the patient's recent significant weight loss, loss of appetite, and report of globus sensation. The results and recommendations were provided to the patient and the RN immediately following completion of the assessment. Dysphagia Evaluation Summary The patient displayed suspected pharyngeal (possible esophageal dysphagia) ch aracterized by delayed throat clearing and coughing following the swallow. Speech Short Term Goals Short Term Goals Short Term Goals The patient will tolerate oral trials of the least restrictive diet consistency without s/s of suspected aspiration. Time Frame-STG: Three Days. Speech Detention Goals Detention Goals 1. The patient will tolerate the least restrictive diet consistency without s/s of suspected aspiration. Time Frame: One Week. Speech-Plan Treatment Plan Speech Therapy Treatment Plan: Continue Plan of Care Treatment Duration: Dec 11, 2021 Frequency: 3 times per week Estimated Hrs Per Day: .25 hour per day Rehab Potential: Fair Safety Risks/Education Teaching Recipient: Patient, Family Teaching Methods: Discussion Response to Teaching: Reinforcement Needed Education Topics Provided: Results, Recommendations, Plan of Care Time Speech Therapy Time In: 08:30 Speech Therapy Time Out: 09:00 Total Billed Time: 30 Billed Treatment Time 1, IDANIA DOS SANTOS [facility] Dec 04, 2021 10:21
[2021-12-04] MEDS ORDERED: NS IV 500 ML 500 ML IV PRN (10:45)
--- NOTE | 2021-12-04 11:18 | Physical Therapy Evaluation ---
PT Evaluation-General Medical Diagnosis Admission Date Dec 04, 2021 at 03:15 Medical Diagnosis: Altered Mental Status Onset Date: Dec 03, 2021 Therapy Diagnosis Therapy Diagnosis: generalized weakness/debility Height/Weight Height (Feet): 0 Height (Inches): 65.00 Weight (Pounds): 102 Precautions Precautions/Isolations: Aspiration, Fall Prevention, Contact/Enteric Isolation, Pressure Ulcer Referral Physician: Shaan Reason for Referral: Evaluation/Treatment Medical History Pertinent Medical History: Hypothroidism Current History EMS from home secondary to abdominal pain and AMS (bed bugs) Reviewed History: Yes Social History Home: Single Level Current Living Status: Children Prior Prior Level of Function SCALE: Activities may be completed with or without assistive devices. 5-Iexcrevsyv-qmkprrc completes the activity by him/herself with no assistance from a helper. 5-Set-up or Clean-up Assistance-helper sets up or cleans up; patient completes activity. Randolph assists only prior to or following the activity. 4-Supervision or Touching Assistance-helper provides verbal cues and/or touching/steadying and/or contact guard assistance as patient completes activity. Assistance may be provided throughout the activity or intermittently. 3-Partial/Moderate Assistance-helper does LESS THAN HALF the effort. Randolph lifts, holds or supports trunk or limbs, but provides less than half the effort. 2-Substantial/Maximal Assistance-helper does MORE THAN HALF the effort. Randolph lifts or holds trunk or limbs and provides more than half the effort. 2-Pacmynkna-vwiyrs does ALL the effort. Patient does none of the effort to complete the activity. Or, the assistance of 2 or more helpers is required for the patient to complete the activity. If activity was not attempted, code reason: 7-Patient Refused. 9-Not Applicable-not attempted and the patient did not perform the activity before the current illness, exacerbation or injury. 10-Not Attempted due to Environmental Limitations-(lack of equipment, weather restraints, etc.). 88-Not Attempted due to Medical Conditions or Safety Concerns. Bed Mobility: 6 Transfers (B,C,W/C): 6 Gait: 6 Indoor Mobility (Ambulation): Independent Prior Devices Use: None PT Evaluation-Current Subjective Patient mildly confused. Objective Patient Orientation: Confused Attachments: Riley Catheter, IV ROM/Strength ROM Lower Extremities bilateral LE WFL Strength Lower Extremities 3+/5 grossly bilateral LE all planes Integumentary/Posture Integumentary refer to nursing notes Bladder Incontinence: Riley Cath Posture slightly kyphotic Neuromuscular (Tone, Coordination, Reflexes) grossly intact Sensory Vision: Wears Glasses Hearing: Functional Transfers Lying to Sitting/Side of Bed(Q: 6 Sit to Stand (QC): 6 Chair/Ted-fy-Dzmlg Xfer(QC): 6 Gait Walk 10 feet (QC): 6 Walk 50 ft with 2 Turns(QC): 7 Walk 150 ft (QC): 7 Distance: 15' Gait Assistive Device: None Comments/Gait Description patient moved FWW aside and performed independently Balance Sitting Static: Normal Sitting Dynamic: Normal Standing Static: Normal Standing Dynamic: Normal Assessment/Needs Patient will be seen short term to ensure patient remains independent with all gross motor skills safely to return to home at maximum LOF. Rehab Potential: Fair PT Short Term Goals Short Term Goals Time Frame: Dec 09, 2021 Roll Left & Right: 6 Sit to lyin Lying to sitting on side of be: 6 Sit to stand: 6 Chair/whx-gk-ectjn transfer: 6 Toilet transfer: 6 Walk 10 feet: 6 Walk 50 feet with two turns: 6 Walk 150 feet: 6 PT Plan Problem List Problem List: Safety Treatment/Plan Treatment Plan: Continue Plan of Care Treatment Plan: Education, Functional Activity Ulysses, Functional Strength, Gait, Safety, Therapeutic Exercise Treatment Duration: Dec 09, 2021 Frequency: 5 times per week Estimated Hrs Per Day: .25 hour per day Patient and/or Family Agrees t: Yes Time/GCodes Time In: 1047 Time Out: 1058 Total Billed Treatment Time: 11 [facility] PT Dec 04, 2021 11:18
--- NOTE | 2021-12-04 11:54 | ST Mod Barium Swallow ---
Speech Evaluation-General Medical Diagnosis Altered Mental Status Onset Date: Dec 03, 2021 Therapy Diagnosis Therapy Diagnosis: Oral Dysphagia Precautions Precautions: Pressure Ulcer, Aspiration Precautions/Isolations: Aspiration, Fall Prevention, Contact/Enteric Isolation, Pressure Ulcer Referral Referring Physician: Dr. Bishop Reason for Referral: Evaluation/Treatment Medical History Pertinent Medical History: Hypothroidism Current History Please refer to the clinical bedside swallowing evaluation for full report with details. Reviewed History: Yes Social History Current Living Status: Children Speech Mod Barium Swallow Prior Level of Function Please refer to the clinical bedside swallowing evaluation for full report with details. Oral Motor Skills Dentition Natural Dentures: Partial Upper, Partial Lower Lingual Protrusion: Normal Lingual ROM: Normal Lingual Strength: Normal Volitional Dry Swallow: Yes Voluntary Cough: Yes Can Clear Throat Volitionally: Yes Textures-Lateral View Lateral View Food Presentation: Thin Liquid via Straw, Pureed Solids, Regular Solids Oral Phase Labial Closure: No Impairment (WFL) Bolus Formation Pooling L/R: Mild Impairment Bolus Formation Placement: No Impairment (WFL) Mastication Rotary Chew: Mild Impairment A/P Lingual Propulsion: Mild Impairment Lingual Movement: No Impairment (WFL) Oral Phase Residue: Mild Impairment The patient displayed prolonged mastication time with dry, solid consistencies secondary to sparse upper and lower dentition. Following mastication, poor bolus formation and posterior transfer were demonstrated (with solid consistencies, only). Pharyngeal Phase Swallow Response: No Impairment (WFL) Base of Tongue: No Impairment (WFL) Epiglottic Movement: No Impairment (WFL) Laryngeal Elevation: No Impairment (WFL) Vallecular Residue: No Impairment (WFL) Pharyngeal Wall Residue: No Impairment (WFL) Piriform Sinus Residue: No Impairment (WFL) Laryngeal Penetration: None Aspiration Observations: None The patient does not display pharyngeal deficits to the oropharyngeal swallow function. No aspiration or laryngeal penetration were demonstrated with any consistency tested. Summary/Impressions Oral Phase Impression: Mild Impairment The patient displays a mild oral impairment to the swallowing function characterized by reduced lingual coordination and increased mastication of solid, boluses (secondary to sparse dentition). Laryngeal penetration and aspiration were not visualized with any consistency tested. Recommendations: - Dysphagia three consistency with thin liquids, as tolerated. - Fully upright and alert for P.O. intake. - Small, single bites and sips. - Monitor for s/s of suspected aspiration with P.O. intake. If demonstrated, contact the referring physician. - ST to sign off of skilled services at this time. The results and recommendations were provided immediately to the patient and the patient's RN. Speech Short Term Goals Short Term Goals Short Term Goals The patient will tolerate oral trials of the least restrictive diet consistency without s/s of suspected aspiration. Time Frame-STG: Three Days. Speech Usp Goals Usp Goals 1. The patient will tolerate the least restrictive diet consistency without s/s of suspected aspiration. Time Frame: One Week. Speech-Plan Treatment Plan Speech Therapy Treatment Plan: Discontinue ST Treatment Duration: Dec 11, 2021 Frequency: 1 time per week Estimated Hrs Per Day: .25 hour per day Rehab Potential: Fair Safety Risks/Education Teaching Recipient: Patient Teaching Methods: Discussion Response to Teaching: Reinforcement Needed Education Topics Provided: Results, Recommendations, Plan of Care Time Speech Therapy Time In: 11:30 Speech Therapy Time Out: 12:00 Total Billed Time: 30 Billed Treatment Time 1, MOD, DYST No IVETH WATSON Dec 04, 2021 11:54
[2021-12-04] MEDS ORDERED: KCL 20 MEQ TAB (K-DUR) PO ONE (12:00)
[2021-12-04] MEDS ORDERED: KETOROLAC 15 MG/ML VIAL IV PRN (12:15)
--- NOTE | 2021-12-04 13:03 | Diagnostic Imaging Report ---
Indication: Dysphasia. Procedure was performed in conjunction with speech pathology. Video fluoroscopy was performed during swallowing of barium multiple consistencies. Total 39 seconds of fluoroscopic time was utilized. Patient ingested thin liquid as well as pudding and cracker consistency. Oral phase unremarkable. There is normal epiglottic tilt and laryngeal elevation. No laryngeal penetration or aspiration was observed. IMPRESSION: Normal modified barium swallow study. Dictated by: Dictated on workstation # [id number]
--- NOTE | 2021-12-04 14:43 | History & Physical-Hospitalist ---
History of Present Illness HPI/Chief Complaint Angelika Cortes is a 76 year old female who presented from home with altered mental status. She reported abdominal pain, nausea, and vomiting to EMS. There were reportedly bed bugs in the chair where she was found. She has a flat affect. She is a poor historian. She seems to answer questions only when she wants to answer. She denies chest pain and shortness of breath. She reports diarrhea at home. She denies fevers. She denies dysuria. Source: patient Exam Limitations: no limitations Date Seen 12/04/21 Time Seen by a Provider: 10:05 Attending Physician Jordy Ross MD PCP Admitting Physician: Marion Bishop MD Attending Physician: Mandy Tran MD Referring Physician Date of Admission Dec 04, 2021 at 03:15 Home Medications & Allergies Home Medications Reviewed patient Home Medication Reconciliation performed by pharmacy medication reconciliations broadcast technician and/or nursing. Patients Allergies have been reviewed. Allergies Allergies Coded Allergies Penicillins (Verified Allergy, Unknown, 03/20/21) codeine (Verified Allergy, Unknown, 03/20/21) Past Uidksnj-Rxtubw-Plusya Hx Patient Social History Tobacco Use?: No Substance use?: No Alcohol Use?: No Pt feels they are or have been: No Immunizations Up To Date Date of Influenza Vaccine: Dec 26, 2020 First/Initial COVID19 Vaccinat: UNSURE Second COVID19 Vaccination Herbie: UNSURE Current Status Advance Directives: No Communicates: Verbally Primary Language: Guamanian Preferred Spoken Language: Guamanian Is interpretation needed?: No Sensory deficits: Vision impairment Implanted or Applied Medical D: None Past Medical History Surgeries: Appendectomy, Gallbladder Pneumonia Hypothyroidsim Anxiety, Depression Blood Disorders: No Family Medical History No Pertinent Family Hx PT DID HAVE AN NORMAL MAMMOGRAM AND NORMAL LEFT BREAST ULTRASOUND 04/2021 Review of Systems Constitutional: weakness Respiratory: no symptoms reported Cardiovascular: no symptoms reported Gastrointestinal: abdominal pain, diarrhea, nausea, vomiting Genitourinary: no symptoms reported Physical Exam Physical Exam Vital Signs Vital Signs - First Documented 12/04/21 00:10 Temp 36.7 Pulse 85 Resp 24 B/P (MAP) 129/76 (93) Pulse Ox 99 O2 Delivery Nasal Cannula O2 Flow Rate 2.00 Capillary Refill : Less Than 3 Seconds Height, Weight, BMI Height: 0'65.00" Weight: 102lbs. oz. 46.685755ql; 16.71 BMI Method: General Appearance: No Apparent Distress, Chronically ill, Cachetic HEENT: PERRL/EOMI, Pharynx Normal Neck: Normal Inspection, Supple Respiratory: No Respiratory Distress, Decreased Breath Sounds Cardiovascular: Regular Rate, Rhythm, No Murmur Gastrointestinal: Normal Bowel Sounds, Non Tender, Soft Extremity: Normal Inspection, No Pedal Edema Neurologic/Psychiatric: Alert, Other (flat affect) Skin: Normal Color, Warm/Dry Results Results/Procedures Labs Laboratory Tests 12/04/21 00:24 12/04/21 05:15 Patient resulted labs reviewed. Imaging: Reviewed Imaging Report Assessment/Plan Admission Diagnosis Acute gastroenteritis Admission Status: Inpatient Order (span 2 midnights) Reason for Inpatient Admission: IV fluids Assessment and Plan Acute gastroenteritis Nausea and vomiting Acute kidney injury Hyponatremia Hypokalemia Hypomagnesemia Lactic acidosis Acute encephalopathy Mentation improved CT head negative Infectious workup negative IV fluids Monitor and correct electrolytes as needed Antiemetics Debility PT/OT Severe protein calorie malnutrition Ensure Bed bugs Isolation DVT prophylaxis: Lovenox Diagnosis/Problems Diagnosis/Problems (1) Acute gastroenteritis Status: Acute (2) Nausea and vomiting Status: Acute (3) Lactic acidosis Status: Acute (4) Hypomagnesemia Status: Acute (5) Hyponatremia Status: Acute (6) Altered mental status Status: Acute MANDY TRAN MD Dec 04, 2021 14:43
[2021-12-04] MEDS ORDERED: ENOXAPARIN INJECTION 30 MG/0.3 ML SYR SC SCH (15:00)
[2021-12-04] MEDS ORDERED: TRZ50T PO (15:09)
[2021-12-04] MEDS ORDERED: MIRT-68 PO (15:09)
[2021-12-04] MEDS ORDERED: SERTRALINE 50 MG (ZOLOFT) TABLET PO SCH (21:00)
[2021-12-04] MEDS ORDERED: traZODone 50 MG (DESYREL) TAB PO SCH (21:00)
[2021-12-05] VITALS (7 sets, daily range): BP systolic 86–133; BP diastolic 48–91
[2021-12-05] MEDS ORDERED: POTASSIUM CL 10MEQ/50ML IVPB 50 ML IV SCH (06:00)
[2021-12-05] MEDS ORDERED: KCL 20 MEQ TAB (K-DUR) PO SCH (06:00)
[2021-12-05] MEDS ORDERED: MAGNESIUM 1 GM/100 ML IVPB 100 ML IV SCH (06:00)
[2021-12-05 06:03] LABS: CREATININE SERUM 0.71 MG/DL (0.60-1.30); MAGNESIUM 2.1 MG/DL (1.6-2.4); PHOSPHORUS 2.5 MG/DL (2.3-4.7); POTASSIUM 4.4 MMOL/L (3.6-5.0)
[2021-12-05] MEDS: D5 1/2 NS W/KCL 20 MEQ/L 1,000 ML IV SCH (06:11)
[2021-12-05] MEDS ORDERED: LEVOTHYROXINE 25 MCG (LEVOTHROID) TAB PO SCH (06:30)
[2021-12-05] MEDS: PANTOPRAZOLE 40 MG (PROTONIX) VIAL IV SCH (08:28)
--- NOTE | 2021-12-05 13:05 | Physical Therapy Progress Note ---
Therapy Progress Note Pt sitting up in bed upon arrival. Pt's nephew present. Pt declines tx citing d/c today and is a little tired. FUNERAL ATTENDANT encourages pt but pt declines. No tx rendered. PT will check on pt tomorrow if still IP. MIKE BRAY FUNERAL ATTENDANT Dec 05, 2021 13:05
--- NOTE | 2021-12-05 17:17 | Discharge Summary ---
Discharge Summary Hospital Course Problems/Dx: (1) Acute gastroenteritis Status: Acute (2) Nausea and vomiting Status: Acute (3) Lactic acidosis Status: Acute (4) Hypomagnesemia Status: Acute (5) Hyponatremia Status: Acute (6) Altered mental status Status: Acute Hospital Course Date of Admission: Dec 04, 2021 at 03:15 Admission Diagnosis : Acute gastroenteritis Family Physician/Provider: Maya Rosales Date of Discharge: 12/05/21 Discharge Diagnosis: Acute gastroenteritis Hospital Course: Angelika Cortes is a 76 year old female who presented with altered mental status and was admitted with acute gastroenteritis. She was having nausea, vomiting, and diarrhea at home. She became dehydrated. She had several electrolyte issues which were corrected as needed. She was given IV fluids and her diet was advanced. She tolerated this well. She worked with therapy. She refused home health because she has a family member that provides assistance. She was discharged home in stable condition. She should follow up with her PCP in about a week. Labs and Pending Lab Test: Laboratory Tests 12/05/21 05:28: Sodium Level 140, Potassium Level 4.4, Chloride Level 112H, Carbon Dioxide Level 21, Anion Gap 7, Blood Urea Nitrogen 4L, Creatinine 0.71, Estimat Glomerular Filtration Rate 89, BUN/Creatinine Ratio 6, Glucose Level 98, Calcium Level 8.0L , Phosphorus Level 2.5, Magnesium Level 2.1 Microbiology 12/04/21 Blood Culture - Preliminary, Resulted No growth Home Meds Active Reported Mirtazapine 15 Mg Tablet 15 Mg PO HS LAST FILLED 08-09-2021 #30 DAY SUPPLY Trazodone HCl 50 Mg Tablet 25 Mg PO HS TAKES OF A 50MG TAB Levothyroxine Sodium 25 Mcg Tablet 25 Mcg PO DAILY Lomotil 2.5-0.025 mg Tablet (Diphenoxylate HCl/Atropine) 1 Each Tablet 1 Ea PO DAILY PRN Sertraline HCl 50 Mg Tablet 50 Mg PO HS Assessment/Pt Instructions See instructions Discharge Planning: <30 minutes discharge planning Discharge Instructions Discharge Diet: No Restrictions Activity as Tolerated: Yes Discharge Physical Examination Vital Signs Vital Signs Date Time Temp Pulse Resp B/P (MAP) Pulse Ox O2 Delivery O2 Flow Rate FiO2 12/05/21 15:50 36.7 82 22 104/79 (87) 100 Room Air 12/04/21 04:47 2.00 General Appearance: No Apparent Distress, Chronically ill, Thin Respiratory: Lungs Clear, No Respiratory Distress Cardiovascular: Regular Rate, Rhythm, No Murmur Gastrointestinal: Normal Bowel Sounds, Soft Extremity: Normal Inspection, No Pedal Edema Neurologic/Psychiatric: Alert, No Motor/Sensory Deficits Allergies: Coded Allergies: Penicillins (Verified Allergy, Unknown, 03/20/21) codeine (Verified Allergy, Unknown, 03/20/21) Discharge Summary Date of Admission Dec 04, 2021 at 03:15 Date of Discharge Discharge Date: Dec 05, 2021 Discharge Time: 17:12 Admission Diagnosis Acute gastroenteritis Discharge Diagnosis Acute gastroenteritis Nausea and vomiting Acute kidney injury Hyponatremia Hypokalemia Hypomagnesemia Lactic acidosis Acute encephalopathy Severe protein calorie malnutrition Bed bugs (1) Acute gastroenteritis Status: Acute (2) Nausea and vomiting Status: Acute (3) Lactic acidosis Status: Acute (4) Hypomagnesemia Status: Acute (5) Hyponatremia Status: Acute (6) Altered mental status Status: Acute MANDY TRAN MD Dec 05, 2021 17:17
== END 2021-12-05 17:27 | disposition home or self-care (01) ==
LOC: EDUNIT# 00:07 → ER 00:09 → CSD 03:15 → UNDOADMOB 03:15 → INTOOBSV 03:15 → CSD 04:21 → UNDODISOB 12-05 17:27
PROVIDERS: ADMIT Family Medicine; ATTEND Internal Medicine
DX: R41.82 Altered mental status, unspecified (principal); K52.9 Noninfective gastroenteritis and colitis, unspecified; E87.20 Acidosis, unspecified; E83.42 Hypomagnesemia; E87.1 Hypo-osmolality and hyponatremia; N17.9 Acute kidney failure, unspecified; E87.6 Hypokalemia; G93.40 Encephalopathy, unspecified; E43 Unspecified severe protein-calorie malnutrition; Z79.899 Other long term (current) drug therapy
CPT/HCPCS: 51702; 70450; 71045; 71275; 74177; 74230; 80048; 80053; 80306; 81000; 82140; 82150; 82550; 82553; 83605; 83690; 83735 ×2; 83874; 83880; 84100; 84145; 84443; 84484; 85025; 85379; 85610; 85652; 85730; 86141; 87040; 87636; 92526; 92610; 92611; 93005; 93041; 96366; 96372; 96375; 96376 ×2; 97162; 99284; G0378; G0480 ×2; 36415; 80320; 80329